=== PATIENT | female | born 1955 | race Caucasian/White ===

== ENCOUNTER 2021-04-28 06:40 | Inpatient (IN) | payer OTHER, SELFPAY ==
[2021-04-28] VITALS (7 sets, daily range): BP systolic 121–164; BP diastolic 53–63
[~2021-04-28] VITALS: Ht 152.4 cm; Wt 76.2 kg
--- NOTE | 2021-04-28 06:40 | NUR ---
PT RIA ALS. TAKEN TO BED 10
--- NOTE | 2021-04-28 06:43 | NUR ---
Dr. Aguiar examining patient.
--- NOTE | 2021-04-28 06:45 | NUR ---
DIALYSIS PORT TO R UPPER CHEST.
--- NOTE | 2021-04-28 06:45 | NUR ---
65 YO/F BIBA FROM [facility] D/T SOB W O2 SAT OF 70% UPON [facility] ARRIVAL. PATIENT REPORTS SOB AND SLIGHT COUGH BEGINING SUDDEN APPROX 1 HOUR AGO. PATIENT PRESENTS AOX4, GCS 15, ON C-PAP 100% FIO2 O2 SAT 92%, LABORED TACHYPNEIC BREATHING, LUNG SOUNDS DIMINISHED THROUGH OUT. PATIENT HAS SLIGHT COUGH. PATIENT DENIES PAIN OR CHEST PAIN, FEVERS, N/V/D. PATIENT REPORTS NSTEMI X1 WEEK AGO. S1 S2 PRESENT, +2 RADIAL PULSES, CAPREFIL <3 SEC, SKIN WARM AND DRY. PATIENT VSS. ERMD AT BEDSDIDE. PATIENT SITTING IN BED LOCKED IN LOWEST POSITION W X1 SIDERAIL UP, HOB ELEVATED. PLACED IN GOWN W A BLANKET ON. PMH: HTN, DIABETES, ESRD (DIALYSIS M,W,F) NKA
--- NOTE | 2021-04-28 06:50 | NUR ---
PATIENT REFUSED STRAIGHT CATH. ERMHelena AWARE.
--- NOTE | 2021-04-28 07:00 | NUR ---
ANABELLA SAMPLE COLLECTED FROM PATIENT NARES AND SENT TO LAB.
--- NOTE | 2021-04-28 07:14 | NUR ---
Lab at bedside
--- NOTE | 2021-04-28 07:20 | NUR ---
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 Dialysis port noted to R upper chest. Meds: Lisinopril, hydralazine, atenolol, glipizide, amlodipine, atorvastatin, citalopram, clonidine, trazadone, sevelamer, vitamin B complex
--- NOTE | 2021-04-28 07:20 | NUR ---
Report and continuation of care received from QUINTIN Loya
--- NOTE | 2021-04-28 07:20 | NUR ---
Pt report given to QUINTIN [place]. Transfer of care at this time.
--- NOTE | 2021-04-28 07:25 | NUR ---
Patient sitting upright with both eyes closed; SpO2 99% on BiPAP mask. Denies SOB, chest pain at this time. No distress noted. Bed locked in lowest position, side rails x 2, call light in reach
[2021-04-28 07:32] LABS: BASOPHILS # (AUTO) 0.1 K/uL (0.00-0.22); BASOPHILS % (AUTO) 0.4 % (0.0-2.0); EOSINOPHILS # (AUTO) 0.2 K/uL (0-0.4); HEMATOCRIT 34.5 % (36-48); HEMOGLOBIN 10.9 g/dL (12.0-16.0); LYMPHOCYTES # (AUTO) 0.5 K/uL (2.5-16.5); LYMPHOCYTES % (AUTO) 2.8 % (20.5-51.1); MEAN CORPUSCULAR HEMOGLOBIN 30 pg (27-31); MEAN CORPUSCULAR HGB CONC 32 g/dL (33-37); MEAN CORPUSCULAR VOLUME 94.5 fL (80-94); MONOCYTES # (AUTO) 0.6 K/uL (0.8-1.0); MONOCYTES % (AUTO) 3.2 % (1.7-9.3); NEUTROPHILS # (AUTO) 16.8 K/uL (1.8-7.7); NEUTROPHILS % (AUTO) 92.6 % (42.2-75.2); PLATELET COUNT (AUTO) 270 K/uL (140-450); RED BLOOD CELL COUNT(AUTO) 3.65 MIL/uL (4.20-5.40); RED CELL DISTRIBUTION WIDTH 14.9 % (11.6-13.7); WHITE BLOOD COUNT (AUTO) 18.2 K/uL (4.8-10.8)
--- NOTE | 2021-04-28 07:35 | NUR ---
Patient states she is unable to provide urine at this time. Will try in 15 minutes. Bedpan provided at bedside
[2021-04-28] MEDS ORDERED: PIPERACILLIN/TAZOBACTAM 3.375 GM in DEXTROSE 5% 50 ML IV ONE (08:00)
[2021-04-28] MEDS ORDERED: PIPERACILLIN/TAZOBACTAM 3.375 GM VIAL IV ONE (08:15)
--- NOTE | 2021-04-28 08:16 | NUR ---
Patient resting in high-fowlers position. engine monitor and BiPAP remains in place. VSS; respirations even/unlabored. Patient denies any SOB, chest pain, nausea. Bed locked in lowest position, side rails x 2, call light in reach.
[2021-04-28 08:29] LABS: PROTHROMBIN TIME 9.8 secs (10.8-13.4)
[2021-04-28 08:32] LABS: ALBUMIN 3.3 g/dL (3.4-5.0); ANION GAP 17.6 (8-16); CARBON DIOXIDE 25.4 mmol/L (21-32); TOTAL BILIRUBIN 0.5 mg/dL (0.0-1.0)
[2021-04-28 08:35] LABS: CREATININE 8.8 mg/dL (0.6-1.3)
[2021-04-28] MEDS ORDERED: FUROSEMIDE 20 MG/2 ML VIAL IVP ONE (08:40)
[2021-04-28] MEDS ORDERED: SODIUM ZIRCONIUM CYCLOSILICATE 10 GM POWD.PACK PO ONE (08:45)
[2021-04-28] MEDS ORDERED: DEXTROSE 50% 50 ML SYR IVP ONE (08:45)
[2021-04-28] MEDS ORDERED: CALCIUM GLUCONATE 10% 1000 MG/10 ML VIAL IVP ONE (08:45)
[2021-04-28] MEDS ORDERED: INSULIN REGULAR, HUMAN 100 UNIT/ML VIAL IVP ONE (08:45)
[2021-04-28] MEDS ORDERED: CALCIUM GLUCONATE 10% 1,000 MG in NACL 0.9% 50 ML IV SCH (08:55)
--- NOTE | 2021-04-28 09:30 | NUR ---
Pt resting in position of comfort. BiPAP 70% per RT. Bed locked in lowest position, side rails x 2, call light in reach.
[2021-04-28] MEDS ORDERED: ZOLPIDEM 5 MG TAB PO PRN (10:05)
[2021-04-28] MEDS ORDERED: HYDROcodone/APAP 7.5/325 MG 1 TAB PO PRN (10:05)
[2021-04-28] MEDS ORDERED: POTASSIUM CHLORIDE 10 MEQ TABER PO PRN (10:05)
[2021-04-28] MEDS ORDERED: DOCUSATE SODIUM 100 MG GELCAP PO PRN (10:05)
[2021-04-28] MEDS ORDERED: ACETAMINOPHEN 325 MG TAB PO PRN (10:05)
[2021-04-28] MEDS ORDERED: guaiFENesin DM 200/20 MG-10 ML 10 ML UDC PO PRN (10:05)
[2021-04-28] MEDS ORDERED: hydrALAZINE 20 MG/ML VIAL IVP PRN (10:05)
[2021-04-28] MEDS ORDERED: ONDANSETRON 4 MG/2 ML VIAL IM/IVP PRN (10:05)
[2021-04-28] MEDS ORDERED: HYDR-1100 PO (10:09)
[2021-04-28] MEDS ORDERED: ALBUTEROL SULFATE/IPRATROPIU 3 ML SOL IH PRN (10:10)
[2021-04-28] MEDS ORDERED: DEXTROSE 50% 50 ML SYR IVP PRN (10:10)
[2021-04-28] MEDS ORDERED: LISI-487 PO (10:11)
[2021-04-28] MEDS ORDERED: ATEN50TA8 PO (10:12)
[2021-04-28] MEDS ORDERED: AMLO10TA PO (10:13)
[2021-04-28] MEDS ORDERED: GLIP10TE PO (10:13)
[2021-04-28] MEDS ORDERED: LIP80 PO (10:14)
[2021-04-28] MEDS ORDERED: CITA20TA15 PO (10:14)
[2021-04-28] MEDS ORDERED: CLON0.2T47 TD (10:15)
[2021-04-28] MEDS ORDERED: SEVE800T6 PO (10:16)
[2021-04-28] MEDS ORDERED: TRAZ-343 PO (10:17)
--- NOTE | 2021-04-28 10:20 | NUR ---
Dr. Wharton is evaluating patient at bedside.
--- NOTE | 2021-04-28 10:45 | NUR ---
Pt resting in position of comfort. SpO2 96% on BiPAP 70%. RR even/unlabored. No distress noted; patient denies pain, SOB, nausea. Bed locked in lowest position, side rails x 2, call light in reach.
--- NOTE | 2021-04-28 10:46 | NUR ---
GRACE (DAUGHTER) POINT OF CONTACT: [phone] PCP: SUSAN LANGSTON FROM [facility]
--- NOTE | 2021-04-28 10:52 | NUR ---
Kendell triana collected, handed to CPT Rosa M.
[2021-04-28 11:17] LABS: PROTHROMBIN TIME 9.9 secs (10.8-13.4)
[2021-04-28 11:23] LABS: CHOL/HDL RATIO 3.1 (1-4.5); MAGNESIUM 2.3 mg/dL (1.8-2.4); PHOSPHORUS 5.4 mg/dL (2.5-4.9); THYROID STIMULATING HORMONE 1.31 uIU/mL (0.34-3.74)
--- NOTE | 2021-04-28 11:45 | NUR ---
Contacted Dr. Wharton regarding BS 444. Verbal order received to give Insulin Humalog 12 Units.
[2021-04-28] MEDS: BLOOD GLUCOSE MONITORING 1 DEV DEV FS SCH ×3 (11:48→21:00)
--- NOTE | 2021-04-28 11:50 | NUR ---
Patient BP elevated; PRN orders to be given.
[2021-04-28] MEDS: INSULIN LISPRO SLIDING SCALE 100 UNITS/ML VIAL SUBQ PRN ×3 (11:59→22:46)
--- NOTE | 2021-04-28 12:34 | NUR ---
Dr. Hanson is evaluating patient at bedside
[2021-04-28] MEDS ORDERED: HYDRALAZINE HCL PO SCH (13:00)
--- NOTE | 2021-04-28 13:01 | NUR ---
Patient assisted with bedpan for UA. Assisted by EMT to have patient upright.
--- NOTE | 2021-04-28 13:04 | NUR ---
Contacted Yolanda, states she will call back.
--- NOTE | 2021-04-28 13:15 | NUR ---
TRANSFERRED PATIENT TO [facility]-114 ON BIPAP TO MASK GOOD CHEST RISE AIRWAY PATENT TOLERATED TRANSFER WELL WITHOUT ADVERSE REACTIONS NOTED SATURATION 97% HR 116
--- NOTE | 2021-04-28 13:25 | NUR ---
Patient will be admitted to care of Dr. Wharton. Admited to Telemetry. Will go toroom 114. Belongings list completed. Report to QUINTIN Guerrero at bedside.
[2021-04-28] MEDS: amLODIPine 5 MG TAB PO SCH (13:30)
--- NOTE | 2021-04-28 13:40 | NUR ---
PT ARRIVED AT UNIT VIA GURNEY, REPORT RECEIVED FROM ER NURSE YANELY RN, PT RESTING NO DISTRESS NOTED, IV TO R HAND 20G PATENT INTACT, SL, PT ON BIPAP FIO2 70%, NO DISTRESS NOTED, SATURATING @ 98%. TUNNEL CATH TO RIGHT CHEST FOR DIALYSIS, DRESSING CHANGED. INITIAL ASSESSMENT DONE, ALL SAFETY PRECAUTION MET, CALL LIGHT WITHIN REACH, WILL CONTINUE TO MONITOR.
[2021-04-28] MEDS ORDERED: PIPERACILLIN/TAZOBACTAM 3.375 GM in DEXTROSE 5% 50 ML IV SCH (14:00)
--- NOTE | 2021-04-28 14:00 | NUR ---
BLOOD PRESSURE MEDICATIONS HELD DUE TO PT GETTING DIALYSIS . WILL CONTINUE TO MONITOR.
[2021-04-28 14:29] LABS: APPEARANCE,URINE CLEAR (CLEAR); BILIRUBIN,URINE NEGATIVE (NEGATIVE); BLOOD, URINE TRACE-I (NEGATIVE); COLOR,URINE YELLOW (YELLOW); LEUKOCYTE ESTERASE ,URINE NEGATIVE (NEGATIVE); NITRITE, URINE NEGATIVE (NEGATIVE); PH,URINE 7.5 (5.0-9.0); UGLUCOSE 3+ (NEGATIVE)
[2021-04-28 14:44] LABS: WBC,URINE 0-5 /HPF (0-5)
[2021-04-28] MEDS: ALBUTEROL SULFATE/IPRATROPIU 3 ML SOL IH SCH ×2 (16:00→19:20)
[2021-04-28] MEDS: glipiZIDE 5 MG TAB PO SCH (16:30)
[2021-04-28] MEDS: hydrALAZINE 25 MG TAB PO SCH ×2 (17:00→18:55)
--- NOTE | 2021-04-28 18:56 | NUR ---
PT BLOOD PRESSURE 199/64, HYDRALAZINE THAT WAS HELD GIVEN. DR. PARHAM AWARE. WILL CONTINUE TO MONITOR.
--- NOTE | 2021-04-28 19:20 | NUR ---
RECEIVED REPORT FROM DEMETRI RIBEIRO FOR CONTINUITY OF CARE. PT SITTING UP AAOX4 WITH HD RN AT BEDSIDE. HD IN PROGRESS AT THIS TIME VIA R CHEST TUNNELED CATH. NO APPARENT S/S OF ACUTE DISTRESS. BREATHING EVEN AND UNLABORED ON BIPAP WITH O2 SAT OF 98%. R HAND 20G IVL, INTACT/PATENT. POC AND WHITE COMMUNICATION BOARD UPDATED. BED IN LOW/LOCKED POSITION. CALL LIGHT WITHIN REACH. PT ENCOURAGED TO CALL FOR ANY NEEDS/ASSISTANCE. WILL CONTINUE TO MONITOR.
--- NOTE | 2021-04-28 19:30 | NUR ---
ENDORSED PT TO CARTON FORMING MACHINE HELPER NURSE JOHN RIBEIRO FOR CONTINUOUS OF CARE.
--- NOTE | 2021-04-28 20:00 | NUR ---
PLACED PT ON 10L OXYMIZER, RN CALLED ASKING IF THE PT COULD BE PLACED ON AN OXYMIZER, IN ORDER TO EAT. I PLACED THE PT ON THE OXYMIZER, PT SATURATIONS MAINTAINED ABOVE 95%. PT IN NO DISTRESS, WILL CONTINUE TO MONITOR
[2021-04-28] MEDS ORDERED: METOPROLOL 25 MG TAB PO SCH (21:00)
[2021-04-28] MEDS ORDERED: ATORVASTATIN 20 MG TAB PO SCH (21:00)
[2021-04-28] MEDS ORDERED: glipiZIDE ER 5 MG TABER PO SCH (21:00)
[2021-04-28] MEDS: PIPERACILLIN/TAZOBACTAM 2.25 GM in DEXTROSE 5% 50 ML IV SCH (21:00)
[2021-04-28] MEDS: atenoloL 50 MG TAB PO SCH (21:00)
[2021-04-29] VITALS: BP 160/43
[2021-04-29 04:00] VITALS: BP 172/65
[2021-04-29] MEDS: PIPERACILLIN/TAZOBACTAM 2.25 GM in DEXTROSE 5% 50 ML IV SCH ×3 (04:54→20:58)
[2021-04-29] MEDS: BLOOD GLUCOSE MONITORING 1 DEV DEV FS SCH ×4 (06:37→20:57)
[2021-04-29] MEDS: INSULIN LISPRO SLIDING SCALE 100 UNITS/ML VIAL SUBQ PRN ×2 (06:38→17:06)
[2021-04-29 07:09] LABS: BASOPHILS # (AUTO) 0.1 K/uL (0.00-0.22); BASOPHILS % (AUTO) 0.4 % (0.0-2.0); EOSINOPHILS # (AUTO) 0.2 K/uL (0-0.4); EOSINOPHILS % (AUTO) 1.1 % (0.0-4.0); HEMATOCRIT 31.2 % (36-48); HEMOGLOBIN 10.3 g/dL (12.0-16.0); LYMPHOCYTES # (AUTO) 0.7 K/uL (2.5-16.5); LYMPHOCYTES % (AUTO) 3.9 % (20.5-51.1); MEAN CORPUSCULAR HEMOGLOBIN 31 pg (27-31); MEAN CORPUSCULAR HGB CONC 33 g/dL (33-37); MONOCYTES # (AUTO) 0.9 K/uL (0.8-1.0); MONOCYTES % (AUTO) 5.2 % (1.7-9.3); NEUTROPHILS # (AUTO) 15.3 K/uL (1.8-7.7); NEUTROPHILS % (AUTO) 89.4 % (42.2-75.2); PLATELET COUNT (AUTO) 247 K/uL (140-450); RED CELL DISTRIBUTION WIDTH 14.7 % (11.6-13.7); WHITE BLOOD COUNT (AUTO) 17.2 K/uL (4.8-10.8)
--- NOTE | 2021-04-29 07:14 | NUR ---
REPORT GIVEN TO STEPHANIE RIBEIRO FOR CONTINUITY OF CARE. PT SITTING UP AAOX4. NO APPARENT S/S OF ACUTE DISTRESS. BREATHING EVEN AND UNLABORED. BED IN LOW/LOCKED POSITION. CALL LIGHT WITHIN REACH. ALL NEEDS MET AT THIS TIME.
[2021-04-29 07:16] LABS: ANION GAP 13.5 (8-16); CARBON DIOXIDE 29.8 mmol/L (21-32); POTASSIUM 4.3 mmol/L (3.5-5.1)
--- NOTE | 2021-04-29 07:21 | NUR ---
RECEIVED REPORT FROM NEONATAL SPECIALIST NURSE FOR CONTINUITY OF CARE, POC DISCUSSED. PT IS ASLEEP IN BED SATURATIONS AT 99% ON 10L OXIMIZER. PT IS ON TELEMONITOR AT 57HR. PT HAS A RIGHT HAND 20 G SALINE LOCK. PT RECEIVED DIALYSIS YESTERDAY. PUI PENDING. 0700 BLOOD GLUCOSE 202; 4UNITS RECEIVED. SPUTUM NEEDING TO BE OBTAINED, PT REPORTS NO SPUTUM PRODUCTION. ALL SAFETY MEASURES IN PLACE, CALL LIGHT WITHIN REACH. WILL CONTINUE TO MONITOR.
[2021-04-29 08:00] VITALS: BP 146/53
[2021-04-29 08:05] LABS: CREATININE 6.3 mg/dL (0.6-1.3)
[2021-04-29] MEDS: glipiZIDE 5 MG TAB PO SCH ×2 (08:08→17:04)
[2021-04-29] MEDS: PANTOPRAZOLE 40 MG TABEC PO SCH (08:09)
[2021-04-29] MEDS: amLODIPine 5 MG TAB PO SCH (08:09)
[2021-04-29] MEDS: ATORVASTATIN 80 MG TAB PO SCH (08:09)
[2021-04-29] MEDS: atenoloL 50 MG TAB PO SCH ×2 (08:10→20:41)
[2021-04-29] MEDS: CITALOPRAM 20 MG TAB PO SCH (08:10)
[2021-04-29] MEDS: lisinopriL 20 MG TAB PO SCH (08:10)
[2021-04-29] MEDS: ALBUTEROL SULFATE/IPRATROPIU 3 ML SOL IH SCH ×3 (08:12→19:58)
--- NOTE | 2021-04-29 08:12 | NUR ---
SATURATION 99% ON SUPPLEMENTAL OXYGEN AT 10 LPM VIA OXYMIZER POST HHN THERAPY TITRATED FIO2 TO 7 LPM STEPHANIE/QUINTIN NOTIFIED
--- NOTE | 2021-04-29 08:17 | NUR ---
MAX MEDICATION ADMINISTERED PER MD ORDER, PT TOLERATED ADMINISTRATION. ALL SAFETY MEASURES IN PLACE, CALL LIGHT WITHIN REACH WILL CONTINUE TO MONITOR.
[2021-04-29] MEDS ORDERED: lisinopriL 20 MG TAB PO SCH (09:00)
--- NOTE | 2021-04-29 09:00 | NUR ---
PATIENT HAS BEEN SCREENED AND CATEGORIZED MODERATE NUTRITION RISK. PATIENT WILL BE SEEN WITHIN 3-5 DAYS OF ADMISSION. 04/30/21 05/02/[address]
[2021-04-29 09:06] LABS: T4 (THYROXINE) 7.8 ug/dL (4.5-12.0)
[2021-04-29 09:43] LABS: RSV NEGATIVE (NEGATIVE)
--- NOTE | 2021-04-29 09:57 | NUR ---
PT IS SITTING IN THE CHAIR SATING AT 98% ON TELE MONITOR AT 67. ALL SAFETY MEASURES IN PLACE, PT REPORTS ALL NEEDS MET AT THIS TIME. CALL LIGHT WITHIN REACH. WILL CONTINUE TO MONITOR.
--- NOTE | 2021-04-29 11:13 | NUR ---
PT IS STABLE SITTING IN CHAIR WITH NO ACUTE S/S PF DISTRESS. PT IS SATURATING AT 100% ON 6L OXIMIZER. ALL SAFETY MEASURES IN PLACE CALL LIGHT WITHIN REACH. WILL CONTINUE TO MONITOR.
[2021-04-29 12:00] VITALS: BP 148/52
[2021-04-29] MEDS: hydrALAZINE 25 MG TAB PO SCH ×2 (12:07→17:04)
--- NOTE | 2021-04-29 12:11 | NUR ---
DC PLANNING: AMIE SPOKE WITH GET AT [facility] ([phone] OPT 2 OPT 4), STATES THEY HAVE RECEIVED CLINICALS TODAY BUT HAVE NOT YET DETERMINED IF PATIENT IS AUTHORIZED. WILL FAX ORDER THAT PATIENT IS STABLE FOR TRANSFER TO CONTRACTED FACILITY TO [phone]. CM WILL FOLLOW FOR NEEDS. Addendum: 04/29/21 at 1432 by Corrina Delgdao CM DC PLANNING: AMIE SPOKE WITH THE PATIENTS BY PHONE. CONFIRMED THE ADDRESS AND PHONE NUMBER PER FACE SHEET, STATES THAT HIS DAUGHTER TIAGO IS A NURSE AND IS THE PRIMARY CONTACT FOR MEDICAL QUESTIONS. THE PATIENT LIVES WITH HER IN A SINGLE STORY HOUSE, AND HAS NO H/O HOME HEALTH. SHE GOES TO [facility] AT [address] [place] [address] ON ,, AT 5:30 AM AND DRIVES HERSELF. SHE USUALLY DOES NOT STAY FOR THE WHOLE DIALYSIS SESSION AND SOMETIMES MISSES HD WHICH WAS THE CASE ON WEDNESDAY THE . THE PATIENT IS ALSO DIABETIC BUT DOES NOT CHECK HER BLOOD SUGARS OR FOLLOW A DIABETIC DIET. SHE WAS DISCHARGED LAST WEEK FROM [facility] FOR DX OF PNA. THE PATIENT IS INDEPENDENT IN ALL ACTIVITIES, AND HAS DME OF AN O2 CONCENTRATOR, PORTABLE O2, GLUCOMETER, WC, FWW AND CANE. HER STATES THAT SHE HAS NOT NEEDED TO USE THE HOME O2, CM ENDORSED THAT SHE IS CURRENTLY BEING WEANED BUT IS STILL ON A HIGH LITER FLOW AND MIGHT NEED TO USE HER O2 ON THIS DC. DC PLAN AT THIS TIME IS TO RETURN HOME, NO NEW NEEDS ANTICIPATED. CM WILL FOLLOW FOR NEEDS. Addendum: 04/30/21 at 1151 by Corrina Delgado DC PLANNING: TC FROM AMIE STEIN AT [facility], ASKED FOR THE ATTENDING MD'S PHONE NUMBER IN ANTICIPATION OF TRANSFER IN-NETWORK. AMIE SPOKE WITH DR METZ, CONFIRMED THAT HE WANTS PATIENT AT TELEMETRY UNIT STATUS. CM FAXED AMENDED ORDER TO [facility] TO REFLECT LOC, CM WILL FOLLOW FOR NEEDS. Addendum: 05/01/21 at 1138 by Corrina Delgado CM DC PLANNING: CONFIRMED WITH PATIENTS QUINTIN EVON THAT HER DAUGHTER GRACE HAS BEEN CONTACTED TO [facility] MAN THE PATIENT. SPOKE WITH PRAVEEN CASON DC SUMMARY AND MEDICATIONS FAXED TO THEM AT THEIR REQUEST. CM WILL FOLLOW FOR NEEDS.
--- NOTE | 2021-04-29 12:13 | NUR ---
MAX MEDICATION ADMINISTERED PER MD ORDER, PT TOLERATED ADMINISTRATION. ALL SAFETY MEASURES IN PLACE. CALL LIGHT WITHIN REACH. WILL CONTINUE TO MONITOR.
--- NOTE | 2021-04-29 13:43 | NUR ---
SATURATION 100% ON SUPPLEMENTAL OXYGEN AT 7 LPM VIA OXYMIZER POST HHN THERAPY TITRATED FIO2 TO 5 LPM STEPHANIE/QUINTIN NOTIFIED
--- NOTE | 2021-04-29 15:25 | NUR ---
PT IS STABLE SITTING IN BED WITH NO ACUTE S/S OF DISTRESS SATURATING AT 98%. ALL SAFETY MEASURES IN PLACE, CALL LIGHT WITHIN REACH. WILL CONTINUE TO MONITOR
[2021-04-29 16:00] VITALS: BP 143/49
--- NOTE | 2021-04-29 17:04 | NUR ---
BLOOD GLUCOSE IS 350, 8 UNITS OF INSULIN ADMINISTERED PER MD ORDER. PT TOLERATED ADMINISTRATION, PT EDUCATION PROVIDED. MAX MEDICATION ADMINISTERED PER MD ORDER. PT IS STABLE WITH NO ACUTE S/S OF DISTRESS, SOB, AND REPORTS ALL NEEDS ARE MET AT THIS TIME. ALL SAFETY MEASURES IN PLACE, CALL LIGHT WITHIN REACH. WILL CONTINUE TO MONITOR.
--- NOTE | 2021-04-29 18:20 | NUR ---
PT IS STABLE IN CHAIR NEXT TO BED ON TELE MONITOR. ALL SAFETY MEASURES IN PLACE, CALL LIGHT WITHIN REACH WILL CONTINUE TO MONITOR.
--- NOTE | 2021-04-29 19:32 | NUR ---
PT ENDORSED TO WELDING INSTRUCTOR NURSE IN STABLE CONDITION. POC DISCUSSED
--- NOTE | 2021-04-29 19:35 | NUR ---
RECEIVED ENDORSEMENT FROM RN NURSE AT BEDSIDE FOR CONTINUITY OF CARE, PT STABLE CONDITION. PT IS SITTING UP IN A CHAIR ON ROOM AIR SHE IS AOX3-4 SHE HAS A RIGHT UPPER CHEST TUNNEL CATHETER FOR HD CLEAN WRAPPED AND INTACT. SHE HAS A RIGHT HAND 20 GUAGE INTACT AND FLUSHED PATENT. PT ABLE TO AMBULATE INDEPENDENTLY. SHE DENIES ANY PAIN AND ALL UNIVERSAL FALLS PRECAUTIONS IN PLACE.
--- NOTE | 2021-04-29 19:55 | NUR ---
ENTERED PT ROOMS TO ADMINISTER SCHEDULED BREATHING TREATMENT, FOUND PT ON ROOM AIR WITH A SATURATION OF 97%. RN WAS PRESENT BEDSIDE AND AWARE OF PT ON ROOM AIR, WILL CONTINUE TO MONITOR. PT IS NO DISTRESS
[2021-04-29 20:00] VITALS: BP 142/44
--- NOTE | 2021-04-29 20:15 | NUR ---
PT REMAINS ON ROOM AIR, LUNG SOUNDS CLEAR RESPIRATIONS EVEN AND UNLABORED. PT DENIES ANY PAIN AT THIS TIME. V/S FOLLOWS: T 98.1 P 63 R 20 B/P 142/44 02 97%. ALL REQUESTED NEEDS ATTENDED BY STAFF AND ALL UNIVERSAL FALLS PRECAUTIONS IN PLACE.
--- NOTE | 2021-04-29 21:00 | NUR ---
PT FINGERSTICK 149, NO HUMALOG COVERAGE NEEDED. DIABETES TEACHING GIVEN. PT ALSO RECEIVED ORDERED ATENOLOL AND IV ABT ZOSYN ORDERED. EDUCATION REGARDING MEDICATION AND ITS PURPOSES PROVIDED AT BEDSIDE, REINFORCEMENT NEEDED BUT PT VERBALIZED UNDERSTANDING.
--- NOTE | 2021-04-29 22:30 | NUR ---
PT SITTING UP IN ROOM AIR 02 95%,PT IS SLEEPING NOMS/S OF PAIN OR DISTRESS NOTED.
[2021-04-30] VITALS: BP_SYST 142; BP_SYST 154; BP_DIAS 53; BP_DIAS 68
--- NOTE | 2021-04-30 | NUR ---
PT IN BED SLEEPING 02 96% ON ROOM AIR. UNIVERSAL FALLS PRECAUTIONS IN PLACE.
--- NOTE | 2021-04-30 02:00 | NUR ---
ROUNDS DONE, PT IN BED SLEEPING ON ROOM AIR, NO S/S OF PAIN OR DISTRESS NOTED. ALL ORDERED PRECAUTIONS IN PLACE.
--- NOTE | 2021-04-30 03:00 | NUR ---
REPORT GIVEN TO TOMAS RIBEIRO NURSE FOR CONTINUITY OF CARE, PT IN STABLE CONDITION.
[2021-04-30] MEDS: PIPERACILLIN/TAZOBACTAM 2.25 GM in DEXTROSE 5% 50 ML IV SCH ×3 (05:00→21:03)
[2021-04-30 06:00] VITALS: BP 143/49
[2021-04-30 07:28] LABS: BASOPHILS # (AUTO) 0.1 K/uL (0.00-0.22); BASOPHILS % (AUTO) 0.5 % (0.0-2.0); EOSINOPHILS # (AUTO) 0.2 K/uL (0-0.4); EOSINOPHILS % (AUTO) 1.9 % (0.0-4.0); HEMATOCRIT 30.8 % (36-48); LYMPHOCYTES % (AUTO) 7.5 % (20.5-51.1); MEAN CORPUSCULAR HEMOGLOBIN 31 pg (27-31); MEAN CORPUSCULAR HGB CONC 33 g/dL (33-37); MEAN CORPUSCULAR VOLUME 93.8 fL (80-94); MONOCYTES # (AUTO) 0.9 K/uL (0.8-1.0); MONOCYTES % (AUTO) 6.9 % (1.7-9.3); NEUTROPHILS # (AUTO) 10.8 K/uL (1.8-7.7); NEUTROPHILS % (AUTO) 83.2 % (42.2-75.2); PLATELET COUNT (AUTO) 246 K/uL (140-450); RED BLOOD CELL COUNT(AUTO) 3.28 MIL/uL (4.20-5.40); RED CELL DISTRIBUTION WIDTH 14.7 % (11.6-13.7)
--- NOTE | 2021-04-30 07:28 | NUR ---
RECEIVED REPORT FROM ENGINEER OPERATIONS AND MAINTENANCE NURSE FOR CONTINUITY OF CARE, POC DISCUSSED. PT IS IN BED ON ROOM AIR WITH NO COMPLAINTS OF SOB WITH CHEST RISING AND FALLING EVEN AND UNLABORED. PT IS ON TELEMONITOR SINUS RHYTHM. PT HAS A 20G RIGHT HAND SALINE LOCK THAT IS DRY AND INTACT. PT IS ALERT AND ORIENTED X4, ALL NEEDS ARE MET AT THIS TIME. ALL SAFETY MEASURES IN PLACE, CALL LGIT Addendum: 04/30/21 at 0740 by Debbie Gates RN CALL LIGHT WITHIN REACH, WILL CONTINUE TO MONITOR.
[2021-04-30 07:32] LABS: ANION GAP 15.6 (8-16); CARBON DIOXIDE 27.4 mmol/L (21-32)
[2021-04-30 07:33] LABS: CREATININE 8.3 mg/dL (0.6-1.3)
[2021-04-30 08:00] VITALS: BP 158/86
[2021-04-30] MEDS: BLOOD GLUCOSE MONITORING 1 DEV DEV FS SCH ×4 (08:03→21:04)
[2021-04-30] MEDS: INSULIN LISPRO SLIDING SCALE 100 UNITS/ML VIAL SUBQ PRN ×3 (08:19→16:51)
[2021-04-30] MEDS: hydrALAZINE 25 MG TAB PO SCH ×3 (08:22→16:45)
[2021-04-30] MEDS: glipiZIDE 5 MG TAB PO SCH ×2 (08:22→16:45)
[2021-04-30] MEDS: CITALOPRAM 20 MG TAB PO SCH (08:22)
[2021-04-30] MEDS: amLODIPine 5 MG TAB PO SCH (08:23)
[2021-04-30] MEDS: atenoloL 50 MG TAB PO SCH ×2 (08:23→21:04)
[2021-04-30] MEDS: ATORVASTATIN 80 MG TAB PO SCH (08:23)
[2021-04-30] MEDS: PANTOPRAZOLE 40 MG TABEC PO SCH (08:23)
[2021-04-30] MEDS: lisinopriL 20 MG TAB PO SCH (08:23)
[2021-04-30] MEDS: ALBUTEROL SULFATE/IPRATROPIU 3 ML SOL IH SCH ×2 (08:30→14:00)
--- NOTE | 2021-04-30 08:37 | NUR ---
MAX MEDICATION ADMINISTERED PER MD ORDER; BLOOD GLUCOSE IS 231; 4 UNITS OF INSULIN ADMINISTERED PER MD SLIDING SCALE. PT REPORTS ALL NEEDS MET AT THIS TIME. PT IS SITTING IN BED WITH CHEST RISING AND FALLING EVEN AND UNLABORED ON ROOM AIR. ALL SAFETY MEASURES IN PLACE, CALL LIGHT WITHIN REACH. WILL CONTINUE TO MONITOR.
--- NOTE | 2021-04-30 09:58 | NUR ---
ASSISTED PT TO THE CHAIR AT BEDSIDE. PT IS STABLE WITH CHEST RISING AND FALLING EVEN AND UNLABORED, NO SOB NOTED. ALL SAFETY MEASURES IN PLACE, CALL LIGHT WITHIN REACH. WILL CONTINUE TO MONITOR.
--- NOTE | 2021-04-30 11:08 | NUR ---
SPOKE WITH GET AT [facility], GAVE AN UPDATE REGARDING PTS CONDITION. ANSWERED ALL QUESTIONS.
[2021-04-30 12:00] VITALS: BP 163/53
--- NOTE | 2021-04-30 12:21 | NUR ---
BLOOD GLUCOSE 321; 8 UNITS OF INSULIN ADMINISTERED. PT MAX MEDICATION ADMINISTERED PER MD ORDER. PT IV IS PATENT AND INTACT. ALL SAFETY MEASURES IN PLACE, CALL LIGHT WITHIN REACH. WILL CONTINUE TO MONITOR.
--- NOTE | 2021-04-30 13:35 | NUR ---
HEMODIALYSIS NURSE AT BEDSIDE, PT IS CURRENTLY STABLE.
[2021-04-30] MEDS ORDERED: AMOX-1000 PO (15:15)
[2021-04-30] MEDS ORDERED: ASPI-1822 PO (15:18)
[2021-04-30] MEDS ORDERED: LISI-487 PO (15:18)
[2021-04-30 16:00] VITALS: BP 156/62
--- NOTE | 2021-04-30 16:39 | NUR ---
HEMODIALYSIS NURSE REPORTED PT REPORTS DIZZINESS, AND CRAMPING IN ABDOMEN, STATES SHE WANTS TO FINISH HEMODIALYSIS EARLY. PT VITAL SIGNS ARE STABLE, ON TELE MONITOR SHOWING SINUS RHYTHM. REMOVED 2.2 L OF FLUIDS. WILL CONTINUE TO MONITOR.
--- NOTE | 2021-04-30 16:57 | NUR ---
BLOOD GLUCOSE IS 283; 6 UNITS OF INSULIN ADMINISTERED PER MD ORDER. PT EDUCATION PROVIDED. MAX MEDICATION ADMINISTERED PER MD ORDER. PT IS RESTING IN BED WITH NO ACUTE S/S OF DISTRESS OR SOB. ALL SAFETY MEASURES IN PLACE, CALL LIGHT WITHIN REACH. WILL CONTINUE TO MONITOR.
--- NOTE | 2021-04-30 17:05 | NUR ---
CALLED ASSET COORDINATOR FOR PLAN FOR PTS DISCHARGE. NO ANSWER, WILL CONTINUE TO FOLLOW.
--- NOTE | 2021-04-30 18:34 | NUR ---
PT QUESTIONING HER PLAN OF CARE, EXPLAINED PROTECTION AGENT IS WORKING ON THE CASE FOR A TRANSFER TO DIFFERENT FACILITY, PT QUESTIONING WHY SHE CAN'T GO HOME. EXPLAINED THE DR WANTS TO CONTINUE TO MONITOR AND CONTINUE WITH ANTIBIOTICS. PT VERBALIZED UNDERSTANDING. REPORTS ALL NEEDS ARE MET AT THIS TIME.
--- NOTE | 2021-04-30 19:00 | NUR ---
PATIENT RECEIVED IN BED ALERT AND ORIENTED X 4. ONGOING MEDICAL CARE PROVIDED. PATIENT ASSISTED WITH ADL'S NEEDED. DISCUSSED PATIENT PLAN OF CARE, MEDICATION REGIMEN, FALL AND SAFETY PRECAUTIONARY MEASURE AND ONGOING CARE. PT IS IN BED ON ROOM BREATHING ROOM AIR WITH NO COMPLAINTS OF SOB WITH CHEST RISING AND FALLING EVEN AND UNLABORED. PT CONTINUED TELEMONITORING; SINUS RHYTHM. IV ANTIBIOTIC THERAPY ONGOING. PT HAS A 20G RIGHT HAND SALINE LOCK THAT IS DRY AND INTACT. PT IS ALERT AND ORIENTED X4, ALL SAFETY MEASURES IN PLACE.
--- NOTE | 2021-04-30 19:03 | NUR ---
PT WILL BE ENDORSED TO TEACHER EDUCATION INSTRUCTOR NURSE IN STABLE CONDITION.
[2021-04-30 20:00] VITALS: BP 152/64
[2021-04-30] MEDS ORDERED: PIPERACILLIN/TAZOBACTAM 2.25 GM VIAL IV ONE (20:55)
[2021-05-01] VITALS: BP 144/68
[2021-05-01 04:00] VITALS: BP 140/68
[2021-05-01] MEDS: PIPERACILLIN/TAZOBACTAM 2.25 GM in DEXTROSE 5% 50 ML IV SCH ×2 (05:51→12:34)
[2021-05-01] MEDS: BLOOD GLUCOSE MONITORING 1 DEV DEV FS SCH ×2 (07:30→11:49)
[2021-05-01 07:31] LABS: BASOPHILS # (AUTO) 0.1 K/uL (0.00-0.22); BASOPHILS % (AUTO) 0.6 % (0.0-2.0); EOSINOPHILS # (AUTO) 0.3 K/uL (0-0.4); EOSINOPHILS % (AUTO) 2.1 % (0.0-4.0); HEMATOCRIT 34.9 % (36-48); HEMOGLOBIN 11.4 g/dL (12.0-16.0); LYMPHOCYTES # (AUTO) 0.9 K/uL (2.5-16.5); LYMPHOCYTES % (AUTO) 5.9 % (20.5-51.1); MEAN CORPUSCULAR HEMOGLOBIN 30 pg (27-31); MEAN CORPUSCULAR HGB CONC 33 g/dL (33-37); MEAN CORPUSCULAR VOLUME 91.9 fL (80-94); MONOCYTES # (AUTO) 1.1 K/uL (0.8-1.0); MONOCYTES % (AUTO) 6.8 % (1.7-9.3); NEUTROPHILS # (AUTO) 13.6 K/uL (1.8-7.7); NEUTROPHILS % (AUTO) 84.6 % (42.2-75.2); PLATELET COUNT (AUTO) 282 K/uL (140-450); RED CELL DISTRIBUTION WIDTH 14.6 % (11.6-13.7)
[2021-05-01 08:00] VITALS: BP 157/76
--- NOTE | 2021-05-01 08:00 | NUR ---
RECEIVED REPORT FROM WIDE PIECE GOODS INSPECTOR FOR CONTINUITY OF CARE. PATIENT ALERT AWAKE ORIENTED X3. NOT IN NAY DISTRESS NOTED. HEPLOCK ON THE RIGHT HAND G 20 DRY AND INTACT. ON HEART MONITOR SHOWS SR. DENIES PAIN. DAUGHTER CALLED AND ASKING FOR UPDATE, TRANSFER CALL TO THE ROOM. WILL CONTINUE TO MONITOR.
[2021-05-01] MEDS: hydrALAZINE 25 MG TAB PO SCH ×2 (08:53→12:33)
[2021-05-01] MEDS: ATORVASTATIN 80 MG TAB PO SCH (08:53)
[2021-05-01] MEDS: glipiZIDE 5 MG TAB PO SCH (08:53)
[2021-05-01] MEDS: amLODIPine 5 MG TAB PO SCH (08:53)
[2021-05-01] MEDS: atenoloL 50 MG TAB PO SCH (08:54)
[2021-05-01] MEDS: CITALOPRAM 20 MG TAB PO SCH (08:54)
[2021-05-01] MEDS: PANTOPRAZOLE 40 MG TABEC PO SCH (08:54)
[2021-05-01] MEDS: INSULIN LISPRO SLIDING SCALE 100 UNITS/ML VIAL SUBQ PRN ×2 (08:55→11:50)
[2021-05-01] MEDS: lisinopriL 20 MG TAB PO SCH (08:55)
[2021-05-01 08:59] LABS: ANION GAP 15.8 (8-16); CARBON DIOXIDE 26.5 mmol/L (21-32); POTASSIUM 4.3 mmol/L (3.5-5.1)
[2021-05-01] MEDS: ALBUTEROL SULFATE/IPRATROPIU 3 ML SOL IH SCH (09:00)
--- NOTE | 2021-05-01 09:00 | NUR ---
ALL DUE MEDICATIONS GIVEN AND TOLERATED WELL. INSULIN COVERAGE GIVEN ORDERED.
[2021-05-01 09:05] LABS: CREATININE 6.3 mg/dL (0.6-1.3)
--- NOTE | 2021-05-01 11:30 | NUR ---
BS CHECKED 281, COVERAGE GIVEN ORDERED. WILL CONTINUE TO MONITOR.
[2021-05-01 12:00] VITALS: BP 157/51
[2021-05-01] MEDS ORDERED: PNEUMOCOCCAL VACCINE 23 MCG/0.5 ML VIAL IMVAC ONE (12:25)
[2021-05-01] MEDS ORDERED: PNEUMOCOCCAL VACCINE 23 MCG/0.5 ML VIAL IMVAC PRN (12:30)
--- NOTE | 2021-05-01 13:43 | NUR ---
DAUGHTER HERE TO REFINISHER PATIENT. DISCHARGE INSTRUCTION AND PRESCRIPTION GIVEN AND VERBALIZED UNDERSTANDING. IN STABLE CONDITION.
[2021-05-01] MEDS ORDERED: LEVO750T51 PO (15:40)
[2021-05-01] MEDS ORDERED: AMOX-1000 PO (15:45)
== END 2021-05-01 13:35 | disposition home or self-care (01) | DRG 871 ==
LOC: MED 06:40 → MTU 09:45
PROVIDERS: ADMIT Family Medicine; ATTEND Family Medicine
PROC: 5A09357 Assistance with Respiratory Ventilation, Less than 24 Consecutive Hours, Continuous Positive Airway Pressure (ICD-10-PCS; principal; 2021-04-28)
PROC: 5A1D70Z Performance of Urinary Filtration, Intermittent, Less than 6 Hours Per Day (ICD-10-PCS; 2021-04-28)
PROC: 5A1D70Z Performance of Urinary Filtration, Intermittent, Less than 6 Hours Per Day (ICD-10-PCS; 2021-04-30)
DX: A41.9 Sepsis, unspecified organism (principal); I50.43 Acute on chronic combined systolic (congestive) and diastolic (congestive) heart failure; J69.0 Pneumonitis due to inhalation of food and vomit; J96.00 Acute respiratory failure, unspecified whether with hypoxia or hypercapnia; N17.0 Acute kidney failure with tubular necrosis; N18.6 End stage renal disease; E44.1 Mild protein-calorie malnutrition; E87.1 Hypo-osmolality and hyponatremia; I13.2 Hypertensive heart and chronic kidney disease with heart failure and with stage 5 chronic kidney disease, or end stage renal disease; D63.1 Anemia in chronic kidney disease; E11.22 Type 2 diabetes mellitus with diabetic chronic kidney disease; E11.65 Type 2 diabetes mellitus with hyperglycemia; F32.9 Major depressive disorder, single episode, unspecified; F41.9 Anxiety disorder, unspecified; K21.9 Gastro-esophageal reflux disease without esophagitis; E78.2 Mixed hyperlipidemia; Z20.822 Contact with and (suspected) exposure to COVID-19; E83.39 Other disorders of phosphorus metabolism; E87.5 Hyperkalemia; Z99.2 Dependence on renal dialysis; Z79.899 Other long term (current) drug therapy; Z68.32 Body mass index [BMI] 32.0-32.9, adult
CPT/HCPCS: 36415; 36600; 71045; 80048; 80053; 81001; 82150; 82803; 82948; 83036; 83605; 83690; 83735; 83880; 84100; 84436; 84439; 84443; 84479; 84484; 85025; 85610; 85730; 87040; 87081; 87086; 87420; 87804; 90732; 90935; 93005; 94640; 94660; 96365; 96367; 96375; 99291; J0360; J0610; J1644; J1815; J1940; J2543; J7060; Q0092; U0003

== ENCOUNTER 2021-06-30 04:10 | Inpatient (IN) | payer OTHER, SELFPAY ==
[~2021-06-30] VITALS: Ht 157.5 cm; Wt 78.0 kg
[2021-06-30 04:10] VITALS: BP 156/112
[~2021-06-30 04:10] MED LIST: AMLO10TA PO; AMOX-1000 PO; ASPI-1822 PO; ATEN50TA8 PO; CITA20TA15 PO; CLON0.2T47 TD; GLIP10TE PO; HYDR-1100 PO; LIP80 PO; LISI-487 PO; SEVE800T6 PO; TRAZ-343 PO
--- NOTE | 2021-06-30 04:10 | NUR ---
PT BROUGHT TO BED 10 VIA [facility]
--- NOTE | 2021-06-30 04:10 | NUR ---
PATIENT BIBA, PATIENT WITH COMPLAINT OF SOB, PER REPORT, WAS ON 6L NC AT HOME WITH DYSPNEA, BASELINE IS 2 L NC. UPON ARRIVAL, PATIENT ON CPAP 7.5, LABORED BREATHING NOTED, AWAKE AND ALERT, DIAPHORETIC. V/S 69 HR, 97% O2 SAT ON CPAP, 22 BPM, B/P 147/56. DENIED ANY CHEST PAIN OR PAIN. RT AT BEDSIDE SET UP CPAP 145/7, FIO2 70%, RATE 18. PEARL DONE AT BEDSIDE. ED MD ASSESSED PATIENT AT BEDSIDE. STARTED IV 22 GAUGE R HAND. PMH: COPD, ON HEMODIALYSIS, SHUNT ON RIGHT SIDE UPPER CHEST.
--- NOTE | 2021-06-30 04:15 | NUR ---
RESPONDED TO ER BED 10, PT BROUGHT BY AMBULANCE ON CPAP, PLACED PATIENT ON BI-PAP WITH DRS VERBAL ORDERS, BI-PAP SETTINGS 14/ RR-18 FiO2 60, WITH A MEDIUM SIZED MASK. PT IS TOLERATEING BI-PAP WELL, WILL CONTINUE TO MONITOR
[2021-06-30 05:16] LABS: BASOPHILS # (AUTO) 0.1 K/uL (0.00-0.22); BASOPHILS % (AUTO) 0.6 % (0.0-2.0); EOSINOPHILS # (AUTO) 0.6 K/uL (0-0.4); EOSINOPHILS % (AUTO) 2.7 % (0.0-4.0); HEMATOCRIT 37.5 % (36-48); LYMPHOCYTES # (AUTO) 1.8 K/uL (2.5-16.5); LYMPHOCYTES % (AUTO) 8.6 % (20.5-51.1); MEAN CORPUSCULAR HEMOGLOBIN 31 pg (27-31); MEAN CORPUSCULAR HGB CONC 32 g/dL (33-37); MEAN CORPUSCULAR VOLUME 95.5 fL (80-94); MONOCYTES # (AUTO) 0.9 K/uL (0.8-1.0); MONOCYTES % (AUTO) 4.3 % (1.7-9.3); NEUTROPHILS # (AUTO) 17.8 K/uL (1.8-7.7); NEUTROPHILS % (AUTO) 83.8 % (42.2-75.2); PLATELET COUNT (AUTO) 348 K/uL (140-450); RED BLOOD CELL COUNT(AUTO) 3.93 MIL/uL (4.20-5.40); RED CELL DISTRIBUTION WIDTH 16.5 % (11.6-13.7); WHITE BLOOD COUNT (AUTO) 21.2 K/uL (4.8-10.8)
[2021-06-30 05:17] VITALS: BP 156/112
[2021-06-30 05:35] LABS: PROTHROMBIN TIME 9.6 secs (10.8-13.4)
[2021-06-30 05:37] LABS: ALBUMIN 3.5 g/dL (3.4-5.0); ANION GAP 21.2 (8-16); CARBON DIOXIDE 24.9 mmol/L (21-32); POTASSIUM 5.1 mmol/L (3.5-5.1); TOTAL BILIRUBIN 0.6 mg/dL (0.0-1.0)
[2021-06-30 05:39] LABS: CREATININE 8.7 mg/dL (0.6-1.3)
--- NOTE | 2021-06-30 05:47 | NUR ---
PATIENT OBSERVED IN BED IN STABLE CONDITION, VSS, NO LABORED BREATHING NOTED. ON BIPAP - FIO2 DECREASED TO 60%, SETTINGS -IPAP 14, EPAP 7, RATE 18. PATIENT ALERT AND ORIENTED X4, MAKES NEEDS KNOWN. PATIENT REFUSES STRAIGHT CATHETER INSERTION AT THIS MOMENT FOR UA. PATIENT STATES SHE IS ON HEMODIALYSIS AND KNOWS SHE HAS NO URINE AND WILL NOTIFY US WHEN SHE IS READY TO HAVE CATHETER INSERTED. WILL CONTINUE TO MONITOR AND FOLLOW POC.
[2021-06-30] MEDS ORDERED: AZITHROMYCIN 500 MG in DEXTROSE 5% 250 ML IV ONE (05:55)
--- NOTE | 2021-06-30 06:02 | NUR ---
TIESHA LAZARO BANNER [phone]
--- NOTE | 2021-06-30 06:23 | NUR ---
PATIENT OBSERVED IN BED SLEEPING WITH EYES CLOSED. VSS, ON BIPAP, NO SIGNS OF ACUTE DISTRESS. WILL CONTINUE TO MONITOR.
[2021-06-30] MEDS ORDERED: AZITHROMYCIN 500 MG INJ VIAL IV ONE ×2 (06:35→06:54)
[2021-06-30] MEDS ORDERED: cefTRIAXone 1,000 MG VIAL ONE (06:38)
--- NOTE | 2021-06-30 06:55 | NUR ---
STARTED PATIENT ON IV ROCEPHIN 100 ML/HR. IV SITE INTACT AND DRY. PATIENT IN STABLE CONDITION.
--- NOTE | 2021-06-30 07:15 | NUR ---
TRICIA RIBEIRO, NOTIFIED IN REPORT THAT PT IS REFUSING STRAIGHT CATH AND REFUSING TO GIVE URINE AT THIS TIME. STATES SHE HAS KIDNEY DISEASE AND IS UNABLE TO URINATE.
[2021-06-30] MEDS ORDERED: HYDROcodone/APAP 7.5/325 MG 1 TAB PO PRN (08:05)
[2021-06-30] MEDS ORDERED: ONDANSETRON 4 MG/2 ML VIAL IM/IVP PRN (08:05)
[2021-06-30] MEDS ORDERED: PIPERACILLIN/TAZOBACTAM 3.375 GM in DEXTROSE 5% 50 ML IV ONE (08:05)
[2021-06-30] MEDS ORDERED: ZOLPIDEM 5 MG TAB PO PRN (08:05)
[2021-06-30] MEDS ORDERED: DOCUSATE SODIUM 100 MG GELCAP PO PRN (08:05)
[2021-06-30] MEDS ORDERED: POTASSIUM CHLORIDE 10 MEQ TABER PO PRN (08:05)
[2021-06-30] MEDS ORDERED: ACETAMINOPHEN 325 MG TAB PO PRN (08:05)
[2021-06-30] MEDS ORDERED: guaiFENesin DM 200/20 MG-10 ML 10 ML UDC PO PRN (08:05)
[2021-06-30] MEDS ORDERED: ALBUTEROL SULFATE/IPRATROPIU 3 ML SOL IH PRN (08:10)
[2021-06-30] MEDS ORDERED: HYDRALAZINE HCL PO SCH (09:00)
[2021-06-30] MEDS ORDERED: PIPERACILLIN/TAZOBACTAM 2.25 GM VIAL IV ONE (09:13)
[2021-06-30 09:22] LABS: CHOL/HDL RATIO 2.3 (1-4.5); FREE T4 (FREE THYROXINE) 1.03 ng/dL (0.76-1.46); MAGNESIUM 2.6 mg/dL (1.8-2.4); THYROID STIMULATING HORMONE 0.93 uIU/mL (0.34-3.74)
[2021-06-30] MEDS: PIPERACILLIN/TAZOBACTAM 2.25 GM in DEXTROSE 5% 50 ML IV SCH ×3 (09:31→22:03)
[2021-06-30] MEDS: CITALOPRAM 20 MG TAB PO SCH (10:10)
[2021-06-30] MEDS: ASPIRIN 81 MG TAB.CHEW PO SCH (10:10)
[2021-06-30] MEDS: ATORVASTATIN 80 MG TAB PO SCH (10:11)
[2021-06-30] MEDS: amLODIPine 5 MG TAB PO SCH (10:12)
[2021-06-30] MEDS: PANTOPRAZOLE 40 MG TABEC PO SCH (10:13)
[2021-06-30] MEDS: lisinopriL 20 MG TAB PO SCH (10:14)
[2021-06-30] MEDS: atenoloL 50 MG TAB PO SCH ×2 (10:40→22:05)
[2021-06-30] MEDS: glipiZIDE 10 MG TAB PO SCH ×2 (10:45→17:48)
[2021-06-30] MEDS: hydrALAZINE 25 MG TAB PO SCH ×3 (10:48→17:00)
--- NOTE | 2021-06-30 10:55 | NUR ---
LOC AWAKE AND ALERT VERBALLY RESPONSIVE GOOD CHEST RISE RR 22 BPM BREATH SOUNDS AND SATURATION NOTED REMOVED FROM BIPAP TO MASK PLACED ON SUPPLEMENTAL OXYGEN AT 4 LPM VIA NC HHN PRN THERAPY GIVEN STRONG INTERMITTENT NPC DURING AND POST HHN THERAPY DESKTOP ARCHITECT TO NOTIFY ER/RN
--- NOTE | 2021-06-30 10:59 | NUR ---
Patient will be admitted to care of PRASAD GILLESPIE. Admited to TELEMTERY. Will go to room 114. Belongings list completed. Report to BOUBACAR RIBEIRO.
--- NOTE | 2021-06-30 11:05 | NUR ---
Respiratory Therapist at bedside for respiratory intervention. Patient tolerated.
--- NOTE | 2021-06-30 11:39 | NUR ---
PT WAS TAKEN TO ROOM 114 A WITH RN AND EMT. FAMILY MADE AWARE OF TRANSFER AND STATUS.
[2021-06-30 12:00] VITALS: BP 157/56
--- NOTE | 2021-06-30 13:15 | NUR ---
PATIENT REPOSITIONED, PULLED UP AND PROVIDED AN EXTRA PILLOW PER REQUEST PATIENT TOLERATED WELL . ALL SAFETY MEASURES ARE IN PLACE.
--- NOTE | 2021-06-30 13:15 | NUR ---
AWAKE AND ALERT NO DISTRESS NOTED EQUAL CHEST RISE PATIENT CONSUMING LUNCH AT THIS TIME WASHING TUB OPERATOR TO ATTEMPT 1300 HHN THERAPY AT A LATER TIME
--- NOTE | 2021-06-30 13:28 | NUR ---
PATIENT AMBULATED TO RESTROOM INDEPENDENTLY ALL SAFETY MEASURES ARE IN PLACE.
[2021-06-30] MEDS: ALBUTEROL SULFATE/IPRATROPIU 3 ML SOL IH SCH ×2 (13:52→19:15)
--- NOTE | 2021-06-30 13:52 | NUR ---
STABLE GOOD CHEST RISE AIRWAY PATENT ENCOURAGE PATIENT FOR INTERMITTENT DEEP BREATH AND COUGH DURING HHN THERAPY DEVIN RESPIRONICS V60 BIPAP TO MASK AT BEDSIDE
--- NOTE | 2021-06-30 14:05 | NUR ---
TOLERATED INCENTIVE SPIROMETRY (IS) THERAPY WELL WITHOUT COMPLICATIONS NOTED ENCOURAGED PATIENT TO PRACTICE IS EVERY 1-2 HOURS WHILE AWAKE
--- NOTE | 2021-06-30 15:57 | NUR ---
patient assisted to restroom . pt able to get out of bed independently , pt denies dizziness , sob at this time . pt tolerated well . all safety measures are in place, bed in low position , personal belongings within reach call light accessible and visible .
[2021-06-30 16:00] VITALS: BP 163/58
--- NOTE | 2021-06-30 17:38 | NUR ---
MD AT BEDSIDE EXPLAINED RISK ,BENEFITS, MORBIDITY AND MORTALITY RISK OF HEMODIALYSIS . PATIENT VERBALIZED UNDERSTANDING CONSENT OBTAINED AT THIS TIME.
--- NOTE | 2021-06-30 17:48 | NUR ---
AT BEDSIDE, CHAIR PROVIDED
--- NOTE | 2021-06-30 18:54 | NUR ---
PT AMBULATED TO RESTROOM AND REPOSITIONED AT THIS TIME . ALL SAFETY MEASURES ARE IN PLACE.
--- NOTE | 2021-06-30 19:35 | NUR ---
Patient endorsed to full stack software engineer nurse. Pt instable condition.
--- NOTE | 2021-06-30 19:36 | NUR ---
RECEIVED REPORT FROM AM NURSE. PATIENT IN BED WELL RESTED. HEMODIALYSIS ONGOING. NO SOB NOTED. ALL SAFETY MEASURES ARE IN PLACE. CALL LIGHT WITHIN REACH. NO COMPLAINTS OF PAIN AT THIS TIME. WILL CONTINUE TO MONITOR.
[2021-06-30 20:00] VITALS: BP 128/68
--- NOTE | 2021-06-30 20:25 | NUR ---
HEPARIN 16160 UNITS WAS ADMINISTERED BY DIALYSIS NURSE.
--- NOTE | 2021-06-30 22:00 | NUR ---
DIALYSIS DONE 3.4 L OUTPUT. PATIENT IS STABLE.
--- NOTE | 2021-06-30 22:05 | NUR ---
PATIENT CHANGED AND CLEANED. PT STABLE.
[2021-07-01] VITALS: BP 150/99
--- NOTE | 2021-07-01 00:40 | NUR ---
ASSISTED PATIENT TO THE BATHROOM AND BACK TO BED. NO DISTRESS NOTED. CALL LIGHT WITHIN REACH.
[2021-07-01 04:00] VITALS: BP 166/75
[2021-07-01] MEDS: PIPERACILLIN/TAZOBACTAM 2.25 GM in DEXTROSE 5% 50 ML IV SCH ×3 (05:32→21:30)
--- NOTE | 2021-07-01 05:38 | NUR ---
ZOSYN GIVEN SCHEDULED PER MD ORDERED.
[2021-07-01 07:08] LABS: T4 (THYROXINE) 7.8 ug/dL (4.5-12.0)
--- NOTE | 2021-07-01 07:35 | NUR ---
ENDORSED TO AM NURSE FOR CONTINUITY OF CARE. PT IS STABLE.
--- NOTE | 2021-07-01 07:40 | NUR ---
RECEIVED REPORT FROM CHAR CONVEYOR TENDER CELLAR NURSE FOR CONTINUITY OF CARE. PT IS AOX4, ABLE TO MAKE NEEDS KNOWN. RESPIRATIONS EVEN AND UNLABORED. NO SOB NOTED. SKIN IS WARM, DRY, AND INTACT. IV ON RH 22G SALINE LOCKED. HAS RIGHT UPPER CHEST PERMACATH FOR HD. PLAN OF CARE DISCUSSED. ALL SAFETY MEASURES ARE IN PLACE. CALL LIGHT WITHIN REACH. NO COMPLAINTS OF PAIN AT THIS TIME. WILL CONTINUE TO MONITOR.
[2021-07-01] MEDS: ALBUTEROL SULFATE/IPRATROPIU 3 ML SOL IH SCH ×3 (07:44→19:40)
[2021-07-01] MEDS ORDERED: DEXTROSE 50% 50 ML SYR IVP PRN (07:50)
[2021-07-01 08:00] VITALS: BP 120/45
--- NOTE | 2021-07-01 08:08 | NUR ---
PATIENT HAS BEEN SCREENED AND CATEGORIZED HIGH NUTRITION RISK. PATIENT WILL BE SEEN WITHIN 1-2 DAYS OF ADMISSION. 07/01/21 REFERRAL RECEIVED FOR UNCONTROLLED DIABETES [address]
[2021-07-01 08:13] LABS: BASOPHILS # (AUTO) 0.1 K/uL (0.00-0.22); BASOPHILS % (AUTO) 0.6 % (0.0-2.0); EOSINOPHILS # (AUTO) 0.3 K/uL (0-0.4); EOSINOPHILS % (AUTO) 2.8 % (0.0-4.0); HEMATOCRIT 28.9 % (36-48); HEMOGLOBIN 9.5 g/dL (12.0-16.0); LYMPHOCYTES # (AUTO) 0.8 K/uL (2.5-16.5); LYMPHOCYTES % (AUTO) 8.1 % (20.5-51.1); MEAN CORPUSCULAR HEMOGLOBIN 31 pg (27-31); MEAN CORPUSCULAR HGB CONC 33 g/dL (33-37); MEAN CORPUSCULAR VOLUME 93.6 fL (80-94); MONOCYTES # (AUTO) 0.7 K/uL (0.8-1.0); MONOCYTES % (AUTO) 6.6 % (1.7-9.3); NEUTROPHILS # (AUTO) 8.5 K/uL (1.8-7.7); NEUTROPHILS % (AUTO) 81.9 % (42.2-75.2); PLATELET COUNT (AUTO) 225 K/uL (140-450); RED BLOOD CELL COUNT(AUTO) 3.08 MIL/uL (4.20-5.40); RED CELL DISTRIBUTION WIDTH 16.3 % (11.6-13.7); WHITE BLOOD COUNT (AUTO) 10.4 K/uL (4.8-10.8)
[2021-07-01 08:18] LABS: ANION GAP 12.7 (8-16); POTASSIUM 4.7 mmol/L (3.5-5.1)
[2021-07-01 08:19] LABS: CREATININE 5.4 mg/dL (0.6-1.3)
[2021-07-01] MEDS: atenoloL 50 MG TAB PO SCH ×2 (08:47→21:23)
[2021-07-01] MEDS: hydrALAZINE 25 MG TAB PO SCH ×3 (08:47→17:36)
[2021-07-01] MEDS: amLODIPine 5 MG TAB PO SCH (08:57)
[2021-07-01] MEDS: CITALOPRAM 20 MG TAB PO SCH (08:57)
[2021-07-01] MEDS: glipiZIDE 10 MG TAB PO SCH ×2 (08:57→17:36)
[2021-07-01] MEDS: PANTOPRAZOLE 40 MG TABEC PO SCH (08:57)
[2021-07-01] MEDS: lisinopriL 20 MG TAB PO SCH (08:58)
[2021-07-01] MEDS: ATORVASTATIN 80 MG TAB PO SCH (08:58)
[2021-07-01] MEDS: ASPIRIN 81 MG TAB.CHEW PO SCH (08:58)
--- NOTE | 2021-07-01 09:10 | NUR ---
ALL SCHEDULED MEDS GIVEN. PT IS STABLE. NO DISTRESS NOTED. WILL CONTINUE TO MONITOR.
--- NOTE | 2021-07-01 11:52 | NUR ---
07/01/21 RD INITIAL ASSESSMENT COMPLETED PLEASE REFER TO NUTRITION ASSESSMENT UNDER CARE ACTIVITY FOR ESTIMATED NUTRITIONAL NEEDS. 1. CONTINUE RENAL DIET TOLERATED 2. RECOMMEND CCHO [address] TO FOLLOW-UP 3-5 DAYS, MODERATE RISK [address]
[2021-07-01] MEDS: BLOOD GLUCOSE MONITORING 1 DEV DEV FS SCH ×3 (11:54→21:51)
[2021-07-01 12:00] VITALS: BP 167/60
[2021-07-01] MEDS: INSULIN LISPRO SLIDING SCALE 100 UNITS/ML VIAL SUBQ PRN ×2 (12:19→21:33)
--- NOTE | 2021-07-01 12:19 | NUR ---
BLOOD GLUCOSE CHECK WAS 242. ADMINISTERED 4 UNITS OF INSULIN SQ PER MD ORDERED
--- NOTE | 2021-07-01 14:00 | NUR ---
ALL SCHEDULED MEDICATIONS GIVEN. PT IS STABLE. NO DISTRESS NOTED. WILL CONTINUE TO MONITOR.
[2021-07-01 16:00] VITALS: BP 152/56
--- NOTE | 2021-07-01 17:40 | NUR ---
ALL SCHEDULED MEDS GIVEN. PT IS STABLE. NO DISTRESS NOTED. WILL CONTINUE TO MONITOR.
--- NOTE | 2021-07-01 17:45 | NUR ---
BLOOD SUGAR CHECK WAS 142. NO INSULIN COVERAGE NEEDED.
--- NOTE | 2021-07-01 19:20 | NUR ---
ENDORSED TO PLASTIC JIG AND FIXTURE BUILDER NURSE FOR CONTINUITY OF CARE. PT IS STABLE.
--- NOTE | 2021-07-01 19:21 | NUR ---
RECEIVED REPORT FROM AM NURSE. PATIENT IS AWAKE IN BED. NO ACUTE DISTRESS NOTED. BREATHING EVEN UNLABORED. ON ROOM AIR. NO COMPLAINTS OF PAIN. GRAND DAUGHTER AT BEDSIDE. ALL SAFETY PRECAUTIONS ARE IN PLACE. CALL LIGHT WITHIN REACH. PATIENT STATED I FEEL MUCH MUCH BETTER NOW AND I WANTED TO GO HOME.
--- NOTE | 2021-07-01 19:40 | NUR ---
PT SITTING UP IN BED AWAKE AND ALERT W/ NO SIGNS OF RESPIRATORY DISTRESS SATING 91% ON RA. PT IS SPEAKING COMFORTABLY WITH DAUGHTER AT BEDSIDE STATES SHE FEELS GOOD. BS CLEAR DIMINISHED THROUGHOUT GAVE TX WITH NEBULIZER AND MOUTHPIECE TOLERATED WELL. WILL CONTINUE TO MONITOR.
[2021-07-01 20:00] VITALS: BP 144/49
--- NOTE | 2021-07-01 21:23 | NUR ---
DUE MEDS GIVEN ORDERED.
--- NOTE | 2021-07-01 21:51 | NUR ---
BLOOD GLUCOSE CHECKED 231, 4 UNITS HUMALOG ADMINISTERED ORDERED PER SLIDING SCALE.
[2021-07-02] VITALS: BP 174/93
[2021-07-02 04:00] VITALS: BP 161/62
[2021-07-02] MEDS: PIPERACILLIN/TAZOBACTAM 2.25 GM in DEXTROSE 5% 50 ML IV SCH ×2 (04:23→13:11)
--- NOTE | 2021-07-02 04:23 | NUR ---
ZOSYN GIVEN SCHEDULED.
[2021-07-02] MEDS: BLOOD GLUCOSE MONITORING 1 DEV DEV FS SCH ×3 (06:43→18:09)
--- NOTE | 2021-07-02 06:43 | NUR ---
BLOOD GLUCOSE CHECKED 180
[2021-07-02] MEDS: INSULIN LISPRO SLIDING SCALE 100 UNITS/ML VIAL SUBQ PRN ×3 (06:44→18:21)
[2021-07-02 07:06] LABS: BASOPHILS # (AUTO) 0.1 K/uL (0.00-0.22); BASOPHILS % (AUTO) 0.6 % (0.0-2.0); EOSINOPHILS # (AUTO) 0.4 K/uL (0-0.4); EOSINOPHILS % (AUTO) 3.7 % (0.0-4.0); HEMATOCRIT 28.8 % (36-48); HEMOGLOBIN 9.4 g/dL (12.0-16.0); LYMPHOCYTES # (AUTO) 0.9 K/uL (2.5-16.5); LYMPHOCYTES % (AUTO) 8.1 % (20.5-51.1); MEAN CORPUSCULAR HEMOGLOBIN 31 pg (27-31); MEAN CORPUSCULAR HGB CONC 33 g/dL (33-37); MEAN CORPUSCULAR VOLUME 93.2 fL (80-94); MONOCYTES # (AUTO) 0.7 K/uL (0.8-1.0); MONOCYTES % (AUTO) 6.6 % (1.7-9.3); NEUTROPHILS # (AUTO) 9.1 K/uL (1.8-7.7); PLATELET COUNT (AUTO) 246 K/uL (140-450); RED BLOOD CELL COUNT(AUTO) 3.09 MIL/uL (4.20-5.40); RED CELL DISTRIBUTION WIDTH 15.8 % (11.6-13.7); WHITE BLOOD COUNT (AUTO) 11.3 K/uL (4.8-10.8)
[2021-07-02 07:17] LABS: ANION GAP 18.1 (8-16); CARBON DIOXIDE 24.5 mmol/L (21-32); POTASSIUM 4.6 mmol/L (3.5-5.1)
[2021-07-02] MEDS: ALBUTEROL SULFATE/IPRATROPIU 3 ML SOL IH SCH ×2 (07:18→12:43)
[2021-07-02 07:33] LABS: CREATININE 7.2 mg/dL (0.6-1.3)
--- NOTE | 2021-07-02 07:35 | NUR ---
ENDORSED PATIENT TO AM SHIFT FOR CONTINUITY OF CARE.
--- NOTE | 2021-07-02 07:40 | NUR ---
RECEIVED REPORT FROM BRANCH MECHANIC NURSE FOR CONTINUITY OF CARE. PT IS AOX4, ABLE TO MAKE NEEDS KNOWN. RESPIRATIONS EVEN AND UNLABORED. NO SOB NOTED. SKIN IS WARM, DRY, AND INTACT. IV ON RH 22G SALINE LOCKED. HAS RIGHT UPPER CHEST PERMACATH FOR HD. PLAN OF CARE DISCUSSED. ALL SAFETY MEASURES ARE IN PLACE. CALL LIGHT WITHIN REACH. NO COMPLAINTS OF PAIN AT THIS TIME. WILL CONTINUE TO MONITOR.
[2021-07-02 08:00] VITALS: BP 175/65
[2021-07-02] MEDS: ASPIRIN 81 MG TAB.CHEW PO SCH (08:51)
[2021-07-02] MEDS: glipiZIDE 10 MG TAB PO SCH ×2 (08:51→18:09)
[2021-07-02] MEDS: hydrALAZINE 25 MG TAB PO SCH ×3 (08:51→18:09)
[2021-07-02] MEDS: PANTOPRAZOLE 40 MG TABEC PO SCH (08:51)
[2021-07-02] MEDS: atenoloL 50 MG TAB PO SCH (08:51)
[2021-07-02] MEDS: amLODIPine 5 MG TAB PO SCH (08:51)
[2021-07-02] MEDS: CITALOPRAM 20 MG TAB PO SCH (08:51)
[2021-07-02] MEDS: lisinopriL 20 MG TAB PO SCH (08:51)
[2021-07-02] MEDS: ATORVASTATIN 80 MG TAB PO SCH (08:51)
--- NOTE | 2021-07-02 09:00 | NUR ---
ALL SCHEDULED MEDS GIVEN. PT IS STABLE. NO DISTRESS NOTED. WILL CONTINUE TO MONITOR.
[2021-07-02] MEDS ORDERED: CLIN300C2 PO (09:24)
[2021-07-02] MEDS ORDERED: AMOX-999 PO (09:27)
[2021-07-02 12:00] VITALS: BP 172/46
--- NOTE | 2021-07-02 12:05 | NUR ---
BLOOD GLUCOSE CHECK WAS 227. ADMINISTERED 4 UNITS OF INSULIN SQ PER MD ORDERED.
--- NOTE | 2021-07-02 12:46 | NUR ---
RT AT PATIENT'S BEDSIDE ADMINISTERING BREATHING TREATMENTS.
--- NOTE | 2021-07-02 13:07 | NUR ---
DC PLANNING: THE PATIENT ADMITTED FROM HOME THOUGH THE ED WITH C/O SOB, HAS A H/O ESRD AND COPD. THE PATIENT CAME IN ON CPAP BY EMS AND CONTINUED ON BIPAP. CXR SHOWED BILAT CONSOLIDATION, PULSE OX IN ER WITH BIPAP WAS 78%. THE PATIENT CONTINUED ON O2 AND WAS STARTED ON ZOSYN IV, NEPHROLOGY AND PULMONOLOGY CONSULTS ORDERED. AMIE SPOKE WITH THE PATIENT AT BEDSIDE. SHE LIVES WITH HER IN A SINGLE STORY HOUSE AND HAS NO H/O HOME HEALTH OR DME USE. SHE IS INDEPENDENT IN ALL ACTIVITIES AND DRIVES HERSELF TO DIALYSIS. SHE GOES TO [facility] UNDER DR JANEE ARGUELLES ON M,W, AND F AT 8:45. SHE HAS DME OF AN O2 CONCENTRATOR AND PORTABLE O2, WC, FWW AND CANE. AMIE ALSO SPOKE WITH AMIE VASQUEZ AT [facility] ([phone]), UPDATED HER ON PATIENTS CLINICAL STATUS AND ENDORSED THAT THE PATIENT IS EXPECTED TO DC TO HOME TODAY. AMIE WILL FOLLOW FOR NEEDS.
--- NOTE | 2021-07-02 13:30 | NUR ---
DIALYSIS NURSE AT BEDSIDE PREPARING PATIENT FOR HD.
[2021-07-02 16:00] VITALS: BP 164/48
--- NOTE | 2021-07-02 16:47 | NUR ---
PATIENT COMPLETED HD TREATMENT. PT IS STABLE. NO DISTRESS NOTED. WILL CONTINUE TO MONITOR.
[2021-07-02 17:44] VITALS: BP 155/58
--- NOTE | 2021-07-02 18:15 | NUR ---
ENDORSED DISCHARGE INSTRUCTIONS TO PATIENT. PT VERBALIZED UNDERSTANDING AND SIGNED DISCHARGED FORMS.
[2021-07-02] MEDS ORDERED: HYDR100T49 PO (18:18)
[2021-07-02] MEDS ORDERED: HYDR-734 PO (18:19)
--- NOTE | 2021-07-02 18:31 | NUR ---
PATIENT DISCHARGED OFF THE UNIT. PATIENT IV AND ID BAND REMOVED. PT ESCORTED TO LOBBY WITH . PT WAS STABLE PRIOR TO DISCHARGE.
== END 2021-07-02 18:40 | disposition home or self-care (01) | DRG 871 ==
LOC: MED 04:10 → MTU 08:05
PROVIDERS: ADMIT Family Medicine; ATTEND Family Medicine
PROC: 5A09357 Assistance with Respiratory Ventilation, Less than 24 Consecutive Hours, Continuous Positive Airway Pressure (ICD-10-PCS; principal; 2021-06-30)
PROC: 5A1D70Z Performance of Urinary Filtration, Intermittent, Less than 6 Hours Per Day (ICD-10-PCS; 2021-06-30)
PROC: 5A1D70Z Performance of Urinary Filtration, Intermittent, Less than 6 Hours Per Day (ICD-10-PCS; 2021-07-02)
DX: A41.9 Sepsis, unspecified organism (principal); J69.0 Pneumonitis due to inhalation of food and vomit; I50.43 Acute on chronic combined systolic (congestive) and diastolic (congestive) heart failure; N18.6 End stage renal disease; N17.0 Acute kidney failure with tubular necrosis; J96.01 Acute respiratory failure with hypoxia; I13.2 Hypertensive heart and chronic kidney disease with heart failure and with stage 5 chronic kidney disease, or end stage renal disease; E83.39 Other disorders of phosphorus metabolism; E83.41 Hypermagnesemia; E78.5 Hyperlipidemia, unspecified; F32.A Depression, unspecified; I27.20 Pulmonary hypertension, unspecified; Z20.822 Contact with and (suspected) exposure to COVID-19; E11.22 Type 2 diabetes mellitus with diabetic chronic kidney disease; D63.1 Anemia in chronic kidney disease; Z99.2 Dependence on renal dialysis; Z79.2 Long term (current) use of antibiotics; Z79.82 Long term (current) use of aspirin; Z79.899 Other long term (current) drug therapy
CPT/HCPCS: 36415; 36600; 71045; 80048; 80053; 82150; 83036; 83605; 83690; 83735; 83880; 84100; 84436; 84439; 84443; 84479; 84484; 85025; 85610; 85730; 87040; 87081; 93005; 94640; 94660; 96365; 96366; 96367; 99291; J0456; J0696; J1644; J1815; J2543; J7060

== ENCOUNTER 2022-08-21 12:32 | Inpatient (IN) | payer MEDICARE, OTHER ==
[~2022-08-21] VITALS: Ht 152.4 cm; Wt 89.8 kg
[~2022-08-21 12:32] MED LIST changes: -AMOX-1000 PO; +AMOX-999 PO; +CLIN300C2 PO; -HYDR-1100 PO; +HYDR-734 PO
--- NOTE | 2022-08-21 12:34 | NUR ---
PATIENT BIBA TO BED 2.
[2022-08-21 12:37] VITALS: BP 250/116
--- NOTE | 2022-08-21 12:39 | NUR ---
PT RECEIVED, CARE ASSUMED. PT A/OX4. PT BIB EMS FROM HOME FOR RESP DISTRESS. PT ON BIPAP. RESP THERAPIST AND MD AT BED SIDE. WILL WAIT FOR ORDERS
[2022-08-21] MEDS ORDERED: cefTRIAXone 1,000 MG in DEXT 5% MINI-BAG PLUS 50 ML IV ONE (12:45)
[2022-08-21] MEDS ORDERED: ALBUTEROL SULFATE/IPRATROPIU 3 ML SOL IH ONE (12:45)
[2022-08-21] MEDS ORDERED: cefTRIAXone 1,000 MG VIAL ONE (13:03)
[2022-08-21] MEDS ORDERED: NITROGLYCERIN 0.4 MG TAB SL ONE (13:05)
[2022-08-21 13:20] LABS: BASOPHILS # (AUTO) 0.1 K/uL (0.00-0.22); BASOPHILS % (AUTO) 0.4 % (0.0-2.0); EOSINOPHILS # (AUTO) 0.4 K/uL (0-0.4); HEMATOCRIT 34.3 % (36-48); HEMOGLOBIN 11.6 g/dL (12.0-16.0); LYMPHOCYTES # (AUTO) 0.8 K/uL (2.5-16.5); LYMPHOCYTES % (AUTO) 4.2 % (20.5-51.1); MEAN CORPUSCULAR HEMOGLOBIN 31 pg (27-31); MEAN CORPUSCULAR HGB CONC 34 g/dL (33-37); MEAN CORPUSCULAR VOLUME 92.8 fL (80-94); MONOCYTES # (AUTO) 0.7 K/uL (0.8-1.0); MONOCYTES % (AUTO) 3.7 % (1.7-9.3); NEUTROPHILS % (AUTO) 89.7 % (42.2-75.2); PLATELET COUNT (AUTO) 197 K/uL (140-450)
--- NOTE | 2022-08-21 13:37 | NUR ---
DR. ARGUELLES DRAMATIC COACH EVALUATING PATIENT AT BEDSIDE.
--- NOTE | 2022-08-21 14:03 | NUR ---
GRZEGORZ LAZARO ([phone]) pt called and asked for update, update given at this time
[2022-08-21 14:05] LABS: ALBUMIN 3.9 g/dL (3.4-5.0); ANION GAP 21.1 (8-16); CARBON DIOXIDE 25.9 mmol/L (21-32); TOTAL BILIRUBIN 0.7 mg/dL (0.0-1.0)
[2022-08-21 14:11] LABS: CREATININE 8.5 mg/dL (0.6-1.3)
[2022-08-21] MEDS ORDERED: ZOLPIDEM 10 MG TAB PO PRN (14:30)
[2022-08-21] MEDS ORDERED: MAG SULF 2000 MG/WATER PREMIX 50 ML IV PRN (14:30)
[2022-08-21] MEDS ORDERED: POTASSIUM CHLORIDE 10 MEQ TABER PO PRN (14:30)
[2022-08-21] MEDS ORDERED: ACETAMINOPHEN 325 MG TAB PO PRN (14:30)
[2022-08-21] MEDS ORDERED: DEXTROSE 50% 50 ML SYR IVP PRN (14:30)
[2022-08-21] MEDS ORDERED: DOCUSATE SODIUM 100 MG GELCAP PO PRN (14:30)
[2022-08-21] MEDS ORDERED: MORPHINE SULFATE 2 MG/ML SYR IVP PRN (14:30)
[2022-08-21] MEDS ORDERED: ONDANSETRON 4 MG/2 ML VIAL IVP PRN (14:30)
[2022-08-21] MEDS ORDERED: LORazepam 2 MG/ML VIAL IVP PRN (14:30)
[2022-08-21] MEDS ORDERED: CALCIUM GLUCONATE 10% 1,000 MG in NACL 0.9% 50 ML IV ONE (14:40)
[2022-08-21] MEDS ORDERED: DEXTROSE 50% 50 ML SYR IVP ONE (14:40)
[2022-08-21] MEDS ORDERED: INSULIN REGULAR, HUMAN 100 UNIT/ML VIAL IVP ONE (14:40)
[2022-08-21] MEDS ORDERED: CALCIUM GLUCONATE 10% 1,000 MG in NACL 0.9% 50 ML IV SCH (14:45)
[2022-08-21] MEDS ORDERED: CALCIUM GLUC 1 GM/50 mL NS BAG 50 ML IV ONE (14:55)
[2022-08-21] MEDS: BLOOD GLUCOSE MONITORING 1 DEV DEV FS SCH ×2 (15:37→21:30)
[2022-08-21 16:00] VITALS: BP 188/82
--- NOTE | 2022-08-21 16:15 | NUR ---
PT TRANSFERRED TO ICU 6, RECEIVED BEDSIDE REPORT FROM AUTO WHEEL ALIGNMENT SPECIALIST FOR CONTINUITY OF CARE. PT A/OX4, ALERT, AND ABLE TO MAKE NEEDS KNOWN. FOLLOWS COMMANDS. BIPAP IN PLACE, IPAP 14, EPAP 6, RR 14, FIO2 40%. CONTINENT OF BOWEL AND BLADDER. REPORTS OLIGURIA. WEAKNESS TO R SHOULDER/ARM. DIALYSIS NURSE AT BEDSIDE. PT ABLE TO CONSENT FOR SELF FOR HD. STANDARD PRECAUTION. BED LOCKED AND IN LOWEST POSITION. Addendum: 08/21/22 at 1915 by Leslie Redmond RN PERMACATH TO R CHEST
--- NOTE | 2022-08-21 16:20 | NUR ---
Patient will be admitted to care of KIMBERLY. Admited to ICU. Will go to room ICU6. Belongings list completed. Report to .
[2022-08-21] MEDS ORDERED: NON-FORMULARY ITEM (Hydralazine HCl (Hydralazine Hcl) 1 TAB) PO SCH (17:00)
--- NOTE | 2022-08-21 17:05 | NUR ---
PATIENT HAS BEEN SCREENED AND CATEGORIZED MODERATE NUTRITION RISK. PATIENT WILL BE SEEN WITHIN 3-5 DAYS OF ADMISSION. REVIEWED BY ANN-MARIE LEVI RD
--- NOTE | 2022-08-21 17:30 | NUR ---
GRZEGORZ HERNANDEZ, AT BEDSIDE. UPDATED ON POC. NO FURTHER QUESTIONS AT THIS TIME.
--- NOTE | 2022-08-21 17:45 | NUR ---
REMOVED PATIENT OFF BIPAP AND PLACED ON 3LPM NASAL CANNULA. PATIENT SHOWS NO SIGNS OF DISTRESS AT THIS TIME. WILL CONTINUE TO MONITOR.
[2022-08-21 18:00] VITALS: BP 190/73
--- NOTE | 2022-08-21 19:13 | NUR ---
ENDORSED BEDSIDE REPORT TO MARIUSZ, CULINARY SPECIALIST RN, FOR CONTINUITY OF CARE.
--- NOTE | 2022-08-21 19:15 | NUR ---
RECEIVED PATIENT ON WITH HEMODIALYSIS IN PROGRESS. PATIENT IS ALERT AND ORIENTED, MOVES LIMBS FREELY. VENTILATING TO 2 LITERS 02/NC, WITH SOB ON EXERTION NOTED. WITH SALINE LOCK IN SITU TO RIGHT HAND, INTACT BY INFILTRATED. ABDOMEN IS SOFT AND DISTENDED; ACTIVE BOWEL SOUNDS.
[2022-08-21 20:00] VITALS: BP 166/74
--- NOTE | 2022-08-21 20:15 | NUR ---
PER DIALYSIS, 2 LITERS REMOVED DURING THE HEMODIALYSIS;
--- NOTE | 2022-08-21 20:30 | NUR ---
ATE DINNER WITH [employer]; DAUGHTER AT BEDSIDE WHILE PATIENT ATE.
--- NOTE | 2022-08-21 21:00 | NUR ---
IV CANNULA ON RIGHT HAND INFILTRATED; REMOVED AND INSERTED AN ANGIOCATH G 20 ON LEFT ARM FOR IV ANTIBIOTIC.
[2022-08-21] MEDS: atenoloL 50 MG TAB PO SCH (21:30)
[2022-08-21] MEDS: INSULIN LISPRO SLIDING SCALE 100 UNITS/ML VIAL SUBQ PRN (21:30)
[2022-08-21] MEDS: PIPERACILLIN/TAZOBACTAM 2.25 GM in DEXTROSE 5% 50 ML IV SCH (21:30)
[2022-08-21] MEDS: hydrALAZINE 25 MG TAB PO SCH (21:31)
[2022-08-21] MEDS: traZODone 50 MG TAB PO SCH (21:32)
[2022-08-21 22:00] VITALS: BP 192/81
[2022-08-22] VITALS (9 sets, daily range): BP systolic 149–197; BP diastolic 67–84
--- NOTE | 2022-08-22 01:10 | NUR ---
HAD SIT UP ON BEDSIDE CHAIR FOR ABOUT 20 MINUTES; TOLERATED.
--- NOTE | 2022-08-22 02:00 | NUR ---
SETTLED BACK TO SLEEP THEREAFTER.
[2022-08-22] MEDS: PIPERACILLIN/TAZOBACTAM 2.25 GM in DEXTROSE 5% 50 ML IV SCH ×3 (05:30→20:22)
[2022-08-22 06:09] LABS: BASOPHILS # (AUTO) 0.1 K/uL (0.00-0.22); BASOPHILS % (AUTO) 0.7 % (0.0-2.0); EOSINOPHILS # (AUTO) 0.3 K/uL (0-0.4); EOSINOPHILS % (AUTO) 2.2 % (0.0-4.0); HEMATOCRIT 28.4 % (36-48); HEMOGLOBIN 9.4 g/dL (12.0-16.0); LYMPHOCYTES # (AUTO) 1.1 K/uL (2.5-16.5); LYMPHOCYTES % (AUTO) 9.1 % (20.5-51.1); MEAN CORPUSCULAR HEMOGLOBIN 31 pg (27-31); MEAN CORPUSCULAR HGB CONC 33 g/dL (33-37); MONOCYTES # (AUTO) 0.6 K/uL (0.8-1.0); MONOCYTES % (AUTO) 5.5 % (1.7-9.3); NEUTROPHILS # (AUTO) 9.6 K/uL (1.8-7.7); NEUTROPHILS % (AUTO) 82.5 % (42.2-75.2); PLATELET COUNT (AUTO) 185 K/uL (140-450); RED BLOOD CELL COUNT(AUTO) 3.05 MIL/uL (4.20-5.40); RED CELL DISTRIBUTION WIDTH 16.9 % (11.6-13.7); WHITE BLOOD COUNT (AUTO) 11.6 K/uL (4.8-10.8)
[2022-08-22] MEDS: hydrALAZINE 25 MG TAB PO SCH ×3 (06:10→20:21)
[2022-08-22 06:40] LABS: ANION GAP 15.7 (8-16); POTASSIUM 4.7 mmol/L (3.5-5.1)
[2022-08-22 07:03] LABS: CREATININE 5.3 mg/dL (0.6-1.3)
[2022-08-22] MEDS: BLOOD GLUCOSE MONITORING 1 DEV DEV FS SCH ×4 (07:30→21:23)
--- NOTE | 2022-08-22 08:00 | NUR ---
MD ROUNDS: SEEN BY DR. MCGOVERN DISCUSS ABOUT THE CURRENT CONDITION AND POC. VERBAL ORDER RECEIVED TO TRANSFER TELEMETRY STATUS. NOTED AND CARRIED OUT.
[2022-08-22] MEDS: lisinopriL 20 MG TAB PO SCH (09:02)
[2022-08-22] MEDS: atenoloL 50 MG TAB PO SCH ×2 (09:02→20:21)
[2022-08-22] MEDS: ASPIRIN 81 MG TAB.CHEW PO SCH (09:02)
[2022-08-22] MEDS: ATORVASTATIN 80 MG TAB PO SCH (09:02)
[2022-08-22] MEDS: amLODIPine 5 MG TAB PO SCH (09:06)
[2022-08-22] MEDS: CITALOPRAM 20 MG TAB PO SCH (09:39)
[2022-08-22] MEDS: INSULIN LISPRO SLIDING SCALE 100 UNITS/ML VIAL SUBQ PRN ×3 (12:00→21:24)
--- NOTE | 2022-08-22 15:00 | NUR ---
PT ASSISTED TO THE BEDSIDE COMMODE. HAD SOFT BM YELLOW COLOR X2 FOR WHOLE SHIFT. PT VERBALIZED HAD EXPERIENCE DIARRHEA PREVIOUS WHEN RECEIVING ATB THERAPY, MD INFORMED AND REQUEST PROBIOTIC.
--- NOTE | 2022-08-22 16:00 | NUR ---
PATIENT IS ANXIOUS TO GO HOME AFTER HEMODIALYSIS, MD INFORMED STATED POSSIBLE TOMORROW. PATIENT UPDATED ABOUT THE POC. VERBALIZED UNDERSTANDING.
[2022-08-22] MEDS: LACTOBACILLUS RHAMNOSUS GG 1 EACH CAP PO SCH (16:51)
--- NOTE | 2022-08-22 17:00 | NUR ---
PATIENT DIALYZED 1.5 LITERS OUTPUT. PT TOLERATED WELL.
--- NOTE | 2022-08-22 20:10 | NUR ---
V/S TAKEN TEMP. 97.6 HR 77 BP 175/69; ORAL MEDS GIVEN
--- NOTE | 2022-08-22 20:15 | NUR ---
RECEIVED PATIENT SITTING ON BED; ALERT AND ORIENTED, MOVES LIMBS FREELY. BREATHING EVEN AND UNLABORED ON ROOM AIR. SO2 99%. CARDIACSCOPE SHOWS ON SINUS RHYTHM NO ARRHYTHMIAS SEEN.WITH G20 IV CANNULA ON LEFT ANTECUBITAL AREA; PATENT AND INTACT. WITH PERMA CATH IN PLACE TO RIGHT SUBCLAVIAN FOR HD ACCESS. ABDOMEN IS SOFT, OBESE, ACTIVE BOWEL SOUNDS.
--- NOTE | 2022-08-22 20:20 | NUR ---
FOR TRANSFER TO TELE ROOM 116; REPORT GIVEN TO QUINTIN FAITH.
[2022-08-22] MEDS: traZODone 50 MG TAB PO SCH (20:21)
--- NOTE | 2022-08-22 20:35 | NUR ---
TRANSFERRED PER BED TO TELEMETRY IN [facility] CONDITION;ENDORSED TO QUINTIN FAITH FOR CONTINUITY OF CARE
--- NOTE | 2022-08-22 20:36 | NUR ---
PT WAS DOWNGRADED TO [facility] DEPARTMENT ON ROOM 116 [facility]RU [facility] WITH DIAGNOSIS OF CHF. PT IS AOX4, AMBULATORY, ABLE TO FOLLOW COMMANDS AND ABLE TO VERBALIZE NEEDS. PT IS ON ROOM AIR AND HAS IV ON LEFT UPPER ARM GAUGE 20 SALINE LOCK. PT HAS RIGHT UPPER CHEST PERMA CATH AND LEFT UPPER ARM ANGIOCATH. PT SKIN IS INTACT. PT DENIES PAIN AT THIS TIME. NO S/S OF RESPIRATORY DISTRESS NOTED. ALL SAFETY MEASURES IMPLEMENTED. BED IN LOW POSITION, BED WHEELS ON LOCK AND CALL LIGHT WITHIN REACH.
--- NOTE | 2022-08-22 21:23 | NUR ---
PT BLOOD GLUCOSE IS 382. HUMALOG INSULIN 10 UNITS WAS GIVEN TO PT PER MD ORDER.
[2022-08-22] MEDS: CLONIDINE HYDROCHLORIDE 0.1 MG TAB PO PRN (21:24)
[2022-08-23] VITALS: BP 158/78
--- NOTE | 2022-08-23 | NUR ---
PT WAS GIVEN WARM BLANKET PER PT REQUEST. NO COMPLAIN OF PAIN AT THIS TOME. NO S/S OF RESPIRATORY DISTRESS NOTED. ALL SAFETY MEASURES IMPLEMENTED. BED IN LOW POSITION, BED WHEELS ON LOCK AND CALL LIGHT WITHIN REACH.
--- NOTE | 2022-08-23 02:00 | NUR ---
PT IS SLEEPING. CHEST RISE AND FALL SYMMETRICALLY NOTED. RESPIRATION IS EVEN AND UNLABORED. ALL SAFETY MEASURES IMPLEMENTED. BED IN LOW POSITION, BED WHEELS ON LOCK AND CALL LIGHT WITHIN REACH.
[2022-08-23 04:00] VITALS: BP 174/75
[2022-08-23] MEDS: PIPERACILLIN/TAZOBACTAM 2.25 GM in DEXTROSE 5% 50 ML IV SCH ×3 (04:19→20:27)
[2022-08-23] MEDS: hydrALAZINE 25 MG TAB PO SCH ×3 (04:20→20:37)
--- NOTE | 2022-08-23 04:20 | NUR ---
ALL SCHEDULED AND PRESCRIBED MEDICATION WAS GIVEN TO PT PER MD ORDER. ALL SAFETY MEASURES IMPLEMENTED. BED IN LOW POSITION, BED WHEELS ON LOCK AND CALL LIGHT WITHIN REACH.
[2022-08-23] MEDS: BLOOD GLUCOSE MONITORING 1 DEV DEV FS SCH ×5 (06:44→20:38)
[2022-08-23] MEDS: INSULIN LISPRO SLIDING SCALE 100 UNITS/ML VIAL SUBQ PRN ×4 (06:44→20:42)
--- NOTE | 2022-08-23 06:44 | NUR ---
PT BLOOD GLUCOSE IS 152. HUMALOG INSULIN 2 UNITS WAS GIVEN TO PT PER MD ORDER.
[2022-08-23 06:55] LABS: BASOPHILS # (AUTO) 0.1 K/uL (0.00-0.22); BASOPHILS % (AUTO) 0.5 % (0.0-2.0); EOSINOPHILS # (AUTO) 0.3 K/uL (0-0.4); HEMATOCRIT 29.6 % (36-48); HEMOGLOBIN 9.8 g/dL (12.0-16.0); LYMPHOCYTES # (AUTO) 1.4 K/uL (2.5-16.5); LYMPHOCYTES % (AUTO) 12.6 % (20.5-51.1); MEAN CORPUSCULAR HEMOGLOBIN 31 pg (27-31); MEAN CORPUSCULAR HGB CONC 33 g/dL (33-37); MEAN CORPUSCULAR VOLUME 94.1 fL (80-94); MONOCYTES # (AUTO) 0.9 K/uL (0.8-1.0); MONOCYTES % (AUTO) 8.1 % (1.7-9.3); NEUTROPHILS # (AUTO) 8.7 K/uL (1.8-7.7); NEUTROPHILS % (AUTO) 75.8 % (42.2-75.2); PLATELET COUNT (AUTO) 200 K/uL (140-450); RED BLOOD CELL COUNT(AUTO) 3.15 MIL/uL (4.20-5.40); RED CELL DISTRIBUTION WIDTH 17.4 % (11.6-13.7); WHITE BLOOD COUNT (AUTO) 11.5 K/uL (4.8-10.8)
[2022-08-23 07:22] LABS: ANION GAP 16.2 (8-16); CARBON DIOXIDE 26.4 mmol/L (21-32); POTASSIUM 4.6 mmol/L (3.5-5.1)
--- NOTE | 2022-08-23 07:27 | NUR ---
PT IS STABLE. ENDORSED PT TO MORNING SHIFT NURSE FOR CONTINUITY OF CARE.
--- NOTE | 2022-08-23 07:30 | NUR ---
RECEIVED REPORT FROM NIGHTSHIFT NURSE. PT A/O X4. ABLE TO MAKE NEEDS KNOWN. NO SOB OR RESPIRATORY DISTRESS. ON RA. CARDIAC DIET. SYED #20 SL. TELE, SR. DENIES PAIN AT THIS TIME. PLAN OF CARE DISCUSSED. ALL NEEDS MET. ALL SAFETY MEASURES IN PLACE.
[2022-08-23 08:00] VITALS: BP 157/66
[2022-08-23 08:19] LABS: CREATININE 5.5 mg/dL (0.6-1.3)
[2022-08-23] MEDS: CITALOPRAM 20 MG TAB PO SCH (08:51)
[2022-08-23] MEDS: ATORVASTATIN 80 MG TAB PO SCH (08:51)
[2022-08-23] MEDS: atenoloL 50 MG TAB PO SCH ×2 (08:51→20:28)
[2022-08-23] MEDS: lisinopriL 20 MG TAB PO SCH (08:51)
[2022-08-23] MEDS: LACTOBACILLUS RHAMNOSUS GG 1 EACH CAP PO SCH (08:52)
[2022-08-23] MEDS: ASPIRIN 81 MG TAB.CHEW PO SCH (08:52)
[2022-08-23] MEDS: amLODIPine 5 MG TAB PO SCH (08:52)
--- NOTE | 2022-08-23 09:21 | NUR ---
PATIENT HAS BEEN RE-SCREENED AND CATEGORIZED HIGH NUTRITION RISK. PATIENT WILL BE SEEN WITHIN 1-2 DAYS OF ADMISSION. 08/21/22-08/23/[address] REFERRAL RECEIVED FROM GOPI MCGOVERN MD
[2022-08-23 12:00] VITALS: BP 150/69
--- NOTE | 2022-08-23 15:48 | NUR ---
CONTACTED MD REGARDING POSSIBLE DISCHARGE. AWAITING REPLY. PT UPDATED, PT VERBALIZED UNDERSTANDING. PT IN NO ACUTE DISTRESS. DENIES PAIN. ALL NEEDS MET. ALL SAFETY MEASURES IN PLACE.
[2022-08-23 16:00] VITALS: BP 142/74
--- NOTE | 2022-08-23 16:12 | NUR ---
08/23/22 RD INITIAL ASSESSMENT COMPLETED. PLEASE REFER TO NUTRITION ASSESSMENT UNDER CARE ACTIVITY FOR ESTIMATED NUTRITIONAL NEEDS. 1. CONTINUE CCHO60 GRAMS/CARDIAC/RENAL DIET TOLERATED 2. MONITOR PO INTAKE. 3. MONITOR NUTRITION-RELATED LABS. 3. RD TO FOLLOW-UP 3-5 DAYS, MODERATE RISK HALLEY MARIE RD
--- NOTE | 2022-08-23 19:16 | NUR ---
REPORT GIVEN TO NIGHTSNCFT NURSECANDACE FOR CONTINUITY OF CARE.
--- NOTE | 2022-08-23 19:17 | NUR ---
RECEIVED REPORT FROM MORNING SHIFT NURSE. PT IS AOX4, AMBULATORY, ABLE TO FOLLOW COMMANDS AND ABLE TO VERBALIZE NEEDS. PT IS ON ROOM AIR AND HAS IV ON LEFT UPPER ARM GAUGE 20 SALINE LOCK. PT HAS RIGHT UPPER CHEST PERMA CATH AND LEFT UPPER ARM ANGIOCATH. PT SKIN IS INTACT. PT DENIES PAIN AT THIS TIME. NO S/S OF RESPIRATORY DISTRESS NOTED. ALL SAFETY MEASURES IMPLEMENTED. BED IN LOW POSITION, BED WHEELS ON LOCK AND CALL LIGHT WITHIN REACH.
[2022-08-23 20:00] VITALS: BP 146/55
[2022-08-23] MEDS: traZODone 50 MG TAB PO SCH (20:27)
--- NOTE | 2022-08-23 20:42 | NUR ---
ALL SCHEDULED AND PRESCRIBED MEDICATION WAS GIVEN TO PT EXCEPT HYDRALAZINE DUE TO BP 146/55. ALL SAFETY MEASURES IMPLEMENTED. BED IN LOW POSITION, BED WHEELS ON LOCK AND CALL LIGHT WITHIN REACH.
--- NOTE | 2022-08-23 22:00 | NUR ---
PT IS WATCHING TV. NO COMPLAIN OF PAIN. NO S/S OF RESPIRATORY DISTRESS NOTED. ALL SAFETY MEASURES IMPLEMENTED. BED IN LOW POSITION, BED WHEELS ON LOCK AND CALL LIGHT WITHIN REACH.
[2022-08-24] VITALS (7 sets, daily range): BP systolic 126–164; BP diastolic 56–75
[2022-08-24] MEDS: CLONIDINE HYDROCHLORIDE 0.1 MG TAB PO PRN (00:56)
--- NOTE | 2022-08-24 00:56 | NUR ---
CATAPRES WAS GIVEN TO PT DUE TO BP OF 164/62.
--- NOTE | 2022-08-24 02:26 | NUR ---
REASSESSMENT OF BP 1157/75 WITH P-66 FOR CATAPRES THAT WAS TAKEN BY THE PT.
[2022-08-24] MEDS: PIPERACILLIN/TAZOBACTAM 2.25 GM in DEXTROSE 5% 50 ML IV SCH ×2 (04:37→13:00)
[2022-08-24] MEDS: hydrALAZINE 25 MG TAB PO SCH ×2 (04:40→13:00)
[2022-08-24] MEDS: BLOOD GLUCOSE MONITORING 1 DEV DEV FS SCH ×3 (06:34→16:59)
[2022-08-24] MEDS: INSULIN LISPRO SLIDING SCALE 100 UNITS/ML VIAL SUBQ PRN (06:34)
--- NOTE | 2022-08-24 06:34 | NUR ---
PT BLOOD GLUCOSE IS 340. HUMALOG INSULIN 8 UNITS WAS GIVEN TO PT PER MD ORDER.
[2022-08-24 07:07] LABS: BASOPHILS # (AUTO) 0.1 K/uL (0.00-0.22); BASOPHILS % (AUTO) 0.7 % (0.0-2.0); EOSINOPHILS # (AUTO) 0.4 K/uL (0-0.4); EOSINOPHILS % (AUTO) 3.4 % (0.0-4.0); HEMATOCRIT 28.2 % (36-48); HEMOGLOBIN 9.2 g/dL (12.0-16.0); LYMPHOCYTES # (AUTO) 1.4 K/uL (2.5-16.5); LYMPHOCYTES % (AUTO) 10.8 % (20.5-51.1); MEAN CORPUSCULAR HEMOGLOBIN 31 pg (27-31); MEAN CORPUSCULAR HGB CONC 33 g/dL (33-37); MEAN CORPUSCULAR VOLUME 93.8 fL (80-94); MONOCYTES # (AUTO) 0.8 K/uL (0.8-1.0); MONOCYTES % (AUTO) 6.5 % (1.7-9.3); NEUTROPHILS # (AUTO) 10.2 K/uL (1.8-7.7); NEUTROPHILS % (AUTO) 78.6 % (42.2-75.2); PLATELET COUNT (AUTO) 202 K/uL (140-450); RED CELL DISTRIBUTION WIDTH 17.4 % (11.6-13.7)
[2022-08-24 07:14] LABS: ANION GAP 20.1 (8-16); CARBON DIOXIDE 23.8 mmol/L (21-32); POTASSIUM 4.9 mmol/L (3.5-5.1)
--- NOTE | 2022-08-24 07:24 | NUR ---
PT IS STABLE. ENDORSED PT TO MORNING SHIFT NURSE FOR CONTINUITY OF CARE.
--- NOTE | 2022-08-24 07:24 | NUR ---
RECEIVED REPORT FROM [facility] [place] FOR CONTINUITY OF CARE. PT IN STABLE CONDITION, NO SIGNS OF PAIN OR DISTRESS AT THIS TIME.
--- NOTE | 2022-08-24 08:07 | NUR ---
ENDORSED PT TO DAYSAZFT NURSE SAGRARIO FOR CONTINUITY OF CARE. PT IN STABLE CONDITION.
[2022-08-24] MEDS: lisinopriL 20 MG TAB PO SCH (09:00)
[2022-08-24] MEDS: atenoloL 50 MG TAB PO SCH (09:00)
[2022-08-24] MEDS: ASPIRIN 81 MG TAB.CHEW PO SCH (09:00)
[2022-08-24] MEDS: LACTOBACILLUS RHAMNOSUS GG 1 EACH CAP PO SCH (09:00)
[2022-08-24] MEDS: CITALOPRAM 20 MG TAB PO SCH (09:00)
[2022-08-24] MEDS: ATORVASTATIN 80 MG TAB PO SCH (09:00)
[2022-08-24] MEDS: amLODIPine 5 MG TAB PO SCH (09:00)
--- NOTE | 2022-08-24 19:30 | NUR ---
RECEIVED REPORT FROM DAY SHIFT NURSE SAGRARIO FOR CONTINUITY OF CARE. PATIENT IS A&O X4. PATIENT IS ON ROOM AIR; BREATHING IS NORMAL WITH SYMMETRICAL RISE AND FALL OF CHEST. IV IS A 20G SYED; NO FLUIDS RUNNING. PATIENT JUST FINISHED HEMODIALYSIS. WILL CONTINUE TO OBSERVE PATIENT.
[2022-08-24] MEDS ORDERED: AMOX-999 PO (19:48)
--- NOTE | 2022-08-24 20:24 | NUR ---
HEMODIALYSIS ENDED EARLIER, PATIENT TOLERATED THE PROCEDURE WELL. 2.5 LITERS SAID TO BE REMOVED PER HEMODIALYSIS NURSE. PATIENT SAID THAT SHE WAS DISCHARGED HOME AFTER DIALYSIS BUT THERE WAS NO WRITEN ORDER ON THE CHART. DOCTOR WAS CONTACTED VIA TEXT AND HE SAID THAT HE WILL DISCHARGE THE PATIENT. PATIENT MADE AWARE AND REPORT WAS GIVEN TO THE ON COMING STAFF FOR CONTINOUSE CARE OF THE PATIENT. NO CHANGE IN CONDITION. DUE MEDICATIONS AND CARE WERE GIVEN.
--- NOTE | 2022-08-24 21:40 | NUR ---
PATIENT WAS DISCHARGED HOME. DR. MCGOVERN PUT IN ORDER AND PATIENT'S CAME AND PICKED HER UP. PATIENT'S SIGNED ALL PAPERWORK, RECEIVED A COPY OF THE PAPERWORK, AND IV WAS REMOVED. PATIENT WAS TAKEN TO CAR VIA WHEELCHAIR; AND PATIENT WAS ASSISTED INTO VEHICLE.
[2022-08-25] MEDS ORDERED: AMLO10TA PO (09:39)
[2022-08-25] MEDS ORDERED: ATEN50TA8 PO (09:40)
[2022-08-25] MEDS ORDERED: [UNRECOGNIZED DRUG - CODE] PO (09:41)
[2022-08-25] MEDS ORDERED: HYDR-3233 PO (09:41)
== END 2022-08-24 21:30 | disposition home or self-care (01) | DRG 871 ==
LOC: MED 12:32 → MTU 14:27 → MIC 15:44 → MTU 08-22 20:35
PROVIDERS: ADMIT Family Medicine; ATTEND Family Medicine
PROC: 5A1D70Z Performance of Urinary Filtration, Intermittent, Less than 6 Hours Per Day (ICD-10-PCS; principal; 2022-08-21)
PROC: 5A09357 Assistance with Respiratory Ventilation, Less than 24 Consecutive Hours, Continuous Positive Airway Pressure (ICD-10-PCS; 2022-08-21)
PROC: 5A1D70Z Performance of Urinary Filtration, Intermittent, Less than 6 Hours Per Day (ICD-10-PCS; 2022-08-22)
PROC: 5A1D70Z Performance of Urinary Filtration, Intermittent, Less than 6 Hours Per Day (ICD-10-PCS; 2022-08-24)
DX: A41.9 Sepsis, unspecified organism (principal); I50.33 Acute on chronic diastolic (congestive) heart failure; J18.9 Pneumonia, unspecified organism; N17.0 Acute kidney failure with tubular necrosis; N18.6 End stage renal disease; J96.01 Acute respiratory failure with hypoxia; I13.2 Hypertensive heart and chronic kidney disease with heart failure and with stage 5 chronic kidney disease, or end stage renal disease; I16.1 Hypertensive emergency; J44.0 Chronic obstructive pulmonary disease with (acute) lower respiratory infection; E87.5 Hyperkalemia; R65.20 Severe sepsis without septic shock; E66.9 Obesity, unspecified; Z68.38 Body mass index [BMI] 38.0-38.9, adult; E78.5 Hyperlipidemia, unspecified; E11.22 Type 2 diabetes mellitus with diabetic chronic kidney disease; Z20.822 Contact with and (suspected) exposure to COVID-19; D63.1 Anemia in chronic kidney disease; Z99.2 Dependence on renal dialysis; D63.8 Anemia in other chronic diseases classified elsewhere
CPT/HCPCS: 36415; 71045; 80048; 80053; 82948; 83605; 83735; 83880; 84484; 85025; 87040; 87081; 93005; 94660; 96374; 96375; 99291; J0610; J0696; J1644; J1815; J2543; J7060; Q0092

== ENCOUNTER 2023-08-04 05:19 | Emergency (ER) | payer MEDICARE ==
[~2023-08-04] VITALS: Ht 152.4 cm; Wt 73.9 kg
[2023-08-04 05:19] VITALS: BP 172/67; PULSE 92; RESP 25; TEMP 97.9; O2SAT 99
[~2023-08-04 05:19] MED LIST changes: -CLIN300C2 PO; -CLON0.2T47 TD; +HYDR-3233 PO; +[UNRECOGNIZED DRUG - CODE] PO; +[UNRECOGNIZED DRUG - CODE] TD
[2023-08-04] MEDS ORDERED: cefTRIAXone 1,000 MG VIAL ONE (05:48)
[2023-08-04] MEDS ORDERED: AZITHROMYCIN 500 MG INJ VIAL IV ONE (05:49)
[2023-08-04 05:50] LABS: BASOPHILS # (AUTO) 0.1 K/uL (0.00-0.22); BASOPHILS % (AUTO) 0.8 % (0.0-2.0); EOSINOPHILS # (AUTO) 0.4 K/uL (0-0.4); EOSINOPHILS % (AUTO) 2.3 % (0.0-4.0); HEMATOCRIT 30.5 % (36-48); HEMOGLOBIN 10.1 g/dL (12.0-16.0); LYMPHOCYTES # (AUTO) 0.8 K/uL (2.5-16.5); LYMPHOCYTES % (AUTO) 4.8 % (20.5-51.1); MEAN CORPUSCULAR HEMOGLOBIN 30 pg (27-31); MEAN CORPUSCULAR HGB CONC 33 g/dL (33-37); MONOCYTES # (AUTO) 0.5 K/uL (0.8-1.0); MONOCYTES % (AUTO) 3.2 % (1.7-9.3); NEUTROPHILS % (AUTO) 88.9 % (42.2-75.2); PLATELET COUNT (AUTO) 219 K/uL (140-450); RED BLOOD CELL COUNT(AUTO) 3.31 MIL/uL (4.20-5.40); WHITE BLOOD COUNT (AUTO) 16.9 K/uL (4.8-10.8)
[2023-08-04 06:05] LABS: ANION GAP 20.2 (8-16); CALCIUM 8.3 mg/dL (8.5-10.1); CARBON DIOXIDE 24.3 mmol/L (21-32); POTASSIUM 5.5 mmol/L (3.5-5.1)
[2023-08-04 06:08] LABS: CREATININE 9.9 mg/dL (0.6-1.3)
[2023-08-04 06:09] LABS: ALBUMIN 3.1 g/dL (3.4-5.0); BILIRUBIN,DIRECT 0.1 mg/dL (0.0-0.3); TOTAL BILIRUBIN 0.7 mg/dL (0.0-1.0); TOTAL PROTEIN, SERUM 8.1 g/dL (6.4-8.2)
[2023-08-04 06:13] LABS: LACTIC ACID 0.8 mmol/L (0.4-2.0)
[2023-08-04] MEDS: AZITHROMYCIN 500 MG in DEXTROSE 5% 250 ML IV ONE (06:30)
[2023-08-04 06:38] LABS: BLOOD GAS BASE EXCESS -3.5 mmol/L (-2.0-2.0); BLOOD GAS HCO3 22.6 mmol/L (22-26); BLOOD GAS O2 SAT% 99.7 % (92.0-98.5); BLOOD GAS PCO2 44.7 mmHg (35-45); BLOOD GAS PO2 265.1 mmHg (75-100)
[2023-08-04 06:41] VITALS: PULSE 83; RESP 22; O2SAT 99
[2023-08-04] MEDS ORDERED: VANCOMYCIN 1,000 MG VIAL ONE (07:42)
[2023-08-04] MEDS ORDERED: MORPHINE SULFATE 4 MG/ML SYR ONE (08:35)
[2023-08-04] MEDS: VANCOMYCIN 1,000 MG in DEXTROSE 5% 250 ML IV ONE (08:41)
[2023-08-04] MEDS: MORPHINE SULFATE 4 MG/ML SYR IVP ONE (08:44)
[2023-08-04 10:05] VITALS: BP 186/60; PULSE 60; O2SAT 99
[2023-08-04 11:31] VITALS: BP 160/59; PULSE 77; RESP 16; TEMP 97.1; O2SAT 99
[2023-08-04 13:16] LABS: FLU A ANTIGEN negative (NEGATIVE); FLU B ANTIGEN negative (NEGATIVE)
== END 2023-08-04 11:31 | disposition short-term general hospital (02) ==
LOC: MED 05:19
DX: J96.90 Respiratory failure, unspecified, unspecified whether with hypoxia or hypercapnia (principal); J18.9 Pneumonia, unspecified organism; E11.22 Type 2 diabetes mellitus with diabetic chronic kidney disease; I13.2 Hypertensive heart and chronic kidney disease with heart failure and with stage 5 chronic kidney disease, or end stage renal disease; N18.6 End stage renal disease; I50.9 Heart failure, unspecified; Z99.2 Dependence on renal dialysis; E87.70 Fluid overload, unspecified; Z20.822 Contact with and (suspected) exposure to COVID-19; Z79.899 Other long term (current) drug therapy; Z79.2 Long term (current) use of antibiotics; Z79.82 Long term (current) use of aspirin
CPT/HCPCS: 36415; 36600; 71045; 80048; 80076; 82948; 83605; 85025; 87040; 87426; 87804; 93005; 94660; 96365; 96367; 96375; 99285; J0456; J0696; J2270; J3370; Q0092

== ENCOUNTER 2024-05-29 13:19 | Emergency (ER) | payer MEDICARE ==
[~2024-05-29] VITALS: Ht 152.4 cm; Wt 70.3 kg
[~2024-05-29 13:19] MED LIST changes: +CLON1PAT23 TD; -GLIP10TE PO; +GLIP10TE1 PO; -LISI-487 PO; +LISI-953 PO; -[UNRECOGNIZED DRUG - CODE] TD
[2024-05-29 13:28] VITALS: BP 160/46; PULSE 89; RESP 26; TEMP 97.3; O2SAT 75
[2024-05-29 13:47] LABS: BASOPHILS # (AUTO) 0.1 K/uL (0.00-0.22); BASOPHILS % (AUTO) 0.6 % (0.0-2.0); EOSINOPHILS # (AUTO) 0.4 K/uL (0-0.4); EOSINOPHILS % (AUTO) 2.4 % (0.0-4.0); HEMATOCRIT 31.6 % (36-48); HEMOGLOBIN 10.3 g/dL (12.0-16.0); MEAN CORPUSCULAR HEMOGLOBIN 31 pg (27-31); MEAN CORPUSCULAR HGB CONC 33 g/dL (33-37); MEAN CORPUSCULAR VOLUME 94.6 fL (80-94); MONOCYTES # (AUTO) 0.8 K/uL (0.8-1.0); NEUTROPHILS # (AUTO) 14.2 K/uL (1.8-7.7); PLATELET COUNT (AUTO) 280 K/uL (140-450); RED BLOOD CELL COUNT(AUTO) 3.34 MIL/uL (4.20-5.40); RED CELL DISTRIBUTION WIDTH 17.5 % (11.6-13.7); WHITE BLOOD COUNT (AUTO) 16.5 K/uL (4.8-10.8)
[2024-05-29 14:02] LABS: ANION GAP 18.4 (8-16); CALCIUM 9.3 mg/dL (8.5-10.1); CARBON DIOXIDE 25.7 mmol/L (21-32); POTASSIUM 5.1 mmol/L (3.5-5.1)
[2024-05-29 14:06] LABS: CREATININE 8.9 mg/dL (0.6-1.3)
[2024-05-29 14:17] LABS: INR 0.94 (0.8-1.2); PARTIAL THROMBOPLASTIN TIME 28.5 secs (22-35.6); PROTHROMBIN TIME 9.9 secs (10.8-13.4)
[2024-05-29 14:20] VITALS: BP 170/34; PULSE 65; O2SAT 96
[2024-05-29] MEDS: NITROGLYCERIN 0.4 MG TAB SL ONE (15:21)
[2024-05-29] MEDS: FUROSEMIDE 40 MG/4 ML VIAL IVP ONE (15:22)
[2024-05-29 16:57] VITALS: PULSE 86; O2SAT 100
[2024-05-29] MEDS: LORazepam 2 MG/ML VIAL IVP ONE (19:27)
[2024-05-29] MEDS: atenoloL 25 MG TAB PO ONE (19:35)
[2024-05-29] MEDS: hydrALAZINE 25 MG TAB PO ONE (19:35)
[2024-05-29 20:06] VITALS: BP 181/93; PULSE 68; RESP 26; TEMP 99.8; O2SAT 93
== END 2024-05-29 20:05 | disposition short-term general hospital (02) ==
LOC: MED 13:19
DX: J81.1 Chronic pulmonary edema (principal); E11.22 Type 2 diabetes mellitus with diabetic chronic kidney disease; I13.2 Hypertensive heart and chronic kidney disease with heart failure and with stage 5 chronic kidney disease, or end stage renal disease; I50.9 Heart failure, unspecified; N18.6 End stage renal disease; Z99.2 Dependence on renal dialysis; Z79.899 Other long term (current) drug therapy; Z79.82 Long term (current) use of aspirin
CPT/HCPCS: 36415; 71045; 80048; 83880; 84484; 85025; 85610; 85730; 93005; 94660; 96374; 99291; J2060; J1940